=== PATIENT | male | born 1965 | race Caucasian/White ===

== ENCOUNTER 2019-05-15 23:10 | Emergency (ER) | payer OTHER, SELFPAY ==
[2019-05-15 23:17] VITALS: BP 173/103; PULSE 102; RESP 18; TEMP 36.2; O2SAT 99; BMI 30.4
--- NOTE | 2019-05-15 23:23 | PC.NURSE ---
pt reports similar episode of same seen at [facility]. reports a tight squeezing feeling in his temples. He presents with a slightly reddened ans swollen face. He states this happend before and he was treated with benedryl and steroids. He states it resolved the next day. Pt ambulated self in, denies any ataxia, speech, vision or sensations changes. Provider at bedside
--- NOTE | 2019-05-15 23:33 | ED_ITS ---
HPI - Headache General Chief Complaint: Headache Stated Complaint: bilateral temporal swelling poss arthritis' Time Seen by Provider: 05/15/19 23:12 Source: patient Mode of arrival: ambulatory Limitations: no limitations History of Present Illness HPI Narrative: 54-year-old male nonsmoker with history of OCD, depression, PTSD, GERD, and type 2 diabetes presents with a chief complaint of bilateral temporal swelling and scalp fullness that feels like squeezing. He denies any neurologic symptoms such as blurred vision, trouble with speech, numbness, tingling or weakness of his extremities. He denies any exposure to new chemicals, the son or any other lotions, shampoos or other. Patient denies any runny nose, sore throat or cough. Denies any chest pain or shortness of breath. Patient had one prior episode a few years ago with extensive workup and no definitive diagnosis, but seemed to improve with use of antihistamines, and steroids. MD Complaint: headache Onset (ago): hour(s) Onset description: gradual Location: temporal Severity: moderate Quality: throbbing Relieving factors: nothing Exacerbating factors: none Context: occurred at rest Associated symptoms: none Treatments prior to arrival: none Related Data Home Medications Medication Instructions Recorded Confirmed albuterol sulfate HFA 90 2 puff INHALATION Q6H PRN 08/03/18 05/10/19 mcg/actuation aerosol inhaler cholecalciferol (vitamin D3) 5,000 5,000 unit PO DAILY 08/03/18 05/10/19 unit capsule insulin U- 100 regular human 100 5 unit IM ONCE 08/03/18 05/10/19 unit/mL injection solution lorazepam 0.5 mg tablet 0.5 mg PO QD-BID PRN 08/03/18 05/10/19 metformin 1,000 mg tablet 1,000 mg PO BID 08/03/18 05/10/19 pantoprazole 40 mg tablet,delayed 40 mg PO DAILY PRN 08/03/18 05/10/19 release atorvastatin 10 mg tablet PO DAILY #30 tab 11/29/18 05/10/19 gabapentin 100 mg capsule 600 mg PO BID cap 01/20/19 05/10/19 Previous Rx's Medication Instructions Recorded prednisone 20 mg PO DAILY #5 tab 05/16/19 Allergies Allergy/AdvReac Type Severity Reaction Status Date / Time banana Allergy Verified 05/15/19 23:21 aspirin AdvReac Mild rash Verified 03/29/19 08:06 Penicillins AdvReac Mild rash Verified 03/29/19 08:06 Sulfa (Sulfonamide AdvReac Mild rash Verified 03/29/19 08:06 Antibiotics) Latex, Natural Rubber AdvReac Verified 03/29/19 08:06 contrast Allergy Uncoded 05/15/19 23:21 tropical fruits AdvReac Anaphylaxis-Includes Uncoded 03/29/19 08:06 Bananas Review of Systems Constitutional Denies chills, Denies fever(s), Reports headache(s), Denies lethargy and Denies weakness Eyes Denies change in vision, Denies eye discharge, Denies irritation and Denies loss of vision ENT Ears, Nose, Mouth, and Throat: Denies change in voice, Reports headache(s), Denies neck pain and Denies sore throat Cardiovascular Denies chest pain, Denies irregular heart rhythm, Denies lightheadedness, Denies palpitations, Denies dyspnea, Denies dyspnea on exertion and Denies orthopnea Respiratory Denies cough, Denies dyspnea, Denies dyspnea on exertion and Denies wheezing Gastrointestinal Gastrointestinal: Denies abdominal pain, Denies change in bowel habits, Denies diarrhea, Denies nausea and Denies vomiting Genitourinary Denies hematuria, Denies flank pain, Denies urinary incontinence and Denies urinary urgency Musculoskeletal Denies neck pain Integumentary/Breasts Denies pruritus, Denies erythema, Denies rash and Denies wounds Neurologic Denies confusion, Reports headache(s), Denies loss of vision and Denies weakness Psychiatric Denies anxiety, Denies confusion, Denies depression, Denies homicidal ideation and Denies suicidal ideation Endocrine Denies palpitations Hematologic/Lymphatic Denies easy bruising Allergic/Immunologic Denies wheezing and Reports other PFSH Social History Smoking Status: Never smoker Social History Smoking Status: Never smoker Exam Narrative Exam Narrative: GENERAL: [54] year old patient appears stated age. Well- nourished, well-developed patient, in mild distress. Anxious at baseline HEAD: Atraumatic. Mild bilateral temporal swelling with some tenderness to palpation, minimal scalp with erythema. EYES: Pupils equal round and reactive. Extraocular motions intact. No scleral icterus. No injection or drainage. ENT: Nose without bleeding, purulent drainage. Throat without erythema, tonsillar hypertrophy or exudate. Airway patent. No tongue, lip or throat swelling NECK: Trachea midline. Non tender CARDIOVASCULAR: Regular rate and rhythm without murmurs, gallops, or rubs. RESPIRATORY: Clear to auscultation. Breath sounds equal bilaterally. No wheezes, rales, or rhonchi. GASTROINTESTINAL: Abdomen soft, non-tender, nondistended. EXTREMITIES: No edema or joint tenderness. BACK: Nontender without deformity or crepitance. No flank tenderness. NEURO: AOx3. SKIN: No rash or erythema of visible areas other than that which is stated above Initial Vital Signs Initial Vital Signs: Vital Signs Temperature 97.1 F L 05/15/19 23:17 Pulse Rate 102 H 05/15/19 23:17 Respiratory Rate 18 05/15/19 23:17 Blood Pressure 173/103 H 05/15/19 23:17 Pulse Oximetry 99 05/15/19 23:17 Course Orders Ordered: ED Orders 05/15/19 21:50 Basic Metabolic Panel Stat C-Reactive Protein Quant Stat Complete Blood Count AUTO DIFF Stat Erythrocyte Sedimentation Rate Stat Discontinued Medications Famotidine (Pepcid) 20 mg in 50 mls @ 200 mls/hr IV NOW ONE Stop: 05/15/19 23:45 Last Infusion: 05/16/19 00:19 Dose: 0 mls/hr Admin: 05/15/19 23:53 Dose: 200 mls/hr Ketorolac Tromethamine (Toradol) 15 mg IV NOW ONE Stop: 05/15/19 23:30 Last Admin: 05/15/19 23:53 Dose: 15 mg Methylprednisolone (Solu-Medrol 125 Mg Vial) 125 mg IV NOW ONE Stop: 05/15/19 23:30 Last Admin: 05/15/19 23:53 Dose: 125 mg Vital Signs - 8 hr 05/15/19 23:17 05/16/19 00:01 05/16/19 02:15 Temperature 97.1 F L Pulse Rate 102 H 79 Respiratory Rate 18 76 H 16 Blood Pressure 173/103 H Blood Pressure [Right Arm] 144/72 H 126/75 Pulse Oximetry 99 98 97 MDM - Headache Lab Data Result diagrams: 05/15/19 21:50 05/15/19 21:50 Lab Results 05/15/19 05/15/19 05/15/19 Range/Units 21:50 21:50 21:50 WBC 8.9 (4.5-11.0) X10^3/uL RBC 4.84 (4.5-5.9) X10^6/uL Hgb 13.9 (13.5-17.5) g/dL Hct 40.3 L (41-53) % MCV 83.4 (80-100) fL MCH 28.8 (26-34) PG MCHC 34.5 (30-36) % RDW 14.5 (11.6-14.8) % Plt Count 224 (150-400) X10^3/uL Neut % (Auto) 60.2 (50-75) % Lymph % (Auto) 25.3 (25-40) % [place] % (Auto) 7.0 (3-14) % Eos % (Auto) 7.0 H (2-4) % Baso % (Auto) 0.5 (0-2) % Neut # (Auto) 5400 (0548-1311) /uL Lymph # (Auto) 2300 (7672-6951) /uL [place] # (Auto) 600 (0-900) /uL Eos # (Auto) 600 H (0-450) /uL Baso # (Auto) 0 (0-100) /uL ESR 37 H (0-15) MM/HR Sodium (137-145) mmol/L Potassium (3.4-5.1) mmol/L Chloride (98-107) mmol/L Carbon Dioxide (22-32) mmol/L BUN (9-20) mg/dL Creatinine (0.66-1.25) mg/dL Estimated GFR (>60) mL/min BUN/Creatinine Ratio (6-22) Glucose (70-100) mg/dL Calcium (8.4-10.2) mg/dL C-Reactive Protein 0.5 (<1.0) mg/dL 05/15/19 Range/Units 21:50 WBC (4.5-11.0) X10^3/uL RBC (4.5-5.9) X10^6/uL Hgb (13.5-17.5) g/dL Hct (41-53) % MCV (80-100) fL MCH (26-34) PG MCHC (30-36) % RDW (11.6-14.8) % Plt Count (150-400) X10^3/uL Neut % (Auto) (50-75) % Lymph % (Auto) (25-40) % [place] % (Auto) (3-14) % Eos % (Auto) (2-4) % Baso % (Auto) (0-2) % Neut # (Auto) (9150-3684) /uL Lymph # (Auto) (1534-7823) /uL [place] # (Auto) (0-900) /uL Eos # (Auto) (0-450) /uL Baso # (Auto) (0-100) /uL ESR (0-15) MM/HR Sodium 142 (137-145) mmol/L Potassium 3.7 (3.4-5.1) mmol/L Chloride 102 (98-107) mmol/L Carbon Dioxide 29 (22-32) mmol/L BUN 19 (9-20) mg/dL Creatinine 0.60 L (0.66-1.25) mg/dL Estimated GFR > 60.0 (>60) mL/min BUN/Creatinine Ratio 31.7 H (6-22) Glucose 199 H (70-100) mg/dL Calcium 9.5 (8.4-10.2) mg/dL C-Reactive Protein (<1.0) mg/dL Point of Care Testing Glucose POC 192 Discharge Plan Departure Patient Disposition: Home Clinical Impression: Headache Qualifiers: Headache type: other headache syndrome Qualified Code(s): G44.89 - Other headache syndrome Discharge Date/Time: 05/16/19 02:26 Interventions: ED Discharge Assessment Last Done: 05/16/19 02:25 Instructions: DI for Headache Activity Restrictions/Additional Instructions: *You have been diagnosed with [nonspecific headache, scalp swelling, possible allergic reaction] *What to do: *Take medications as directed *Follow up with your primary care provider in 2-3 days, call for an appointment. Let them know you were seen in the Emergency Department and that we ask that you be seen in follow up *Return to ER if you should have any new, worsening or concerning symptoms Prescriptions: New prednisone 20 mg tablet 20 mg PO DAILY Qty: 5 RF: 0 No Action atorvastatin 10 mg tablet PO DAILY Qty: 30 RF: 0 gabapentin 100 mg capsule 600 mg PO BID RF: 0 lorazepam 0.5 mg tablet 0.5 mg PO QD-BID PRNRF: 0 pantoprazole 40 mg tablet,delayed release (DR/EC) 40 mg PO DAILY PRNRF: 0 metformin 1,000 mg tablet 1,000 mg PO BID RF: 0 insulin regular human 100 unit/mL solution 5 unit IM ONCE RF: 0 albuterol sulfate 90 mcg/actuation HFA aerosol inhaler 2 puff INHALATION Q6H PRNRF: 0 cholecalciferol (vitamin D3) 5,000 unit capsule 5,000 unit PO DAILY RF: 0
[2019-05-15] MEDS: FAMOTIDINE 20 MG/50 ML PIGGYBACK 200 MG IV (23:53)
[2019-05-15] MEDS: methylPREDNISolone 125 MG/2 ML VIAL IV (23:53)
[2019-05-15] MEDS: KETOROLAC 60 MG/2 ML VIAL 15 MG IV (23:53)
[2019-05-15 23:58] LABS: Add Manual Diff / Slide Review NO; Basophils Absolute Auto 0 /uL (0-100); Basophils Percent Auto 0.5 % (0-2); Eosinophils Absolute Auto 600 /uL (0-450); Hematocrit 40.3 % (41-53); Hemoglobin 13.9 g/dL (13.5-17.5); Lymphocytes Absolute Auto 2300 /uL (1100-4500); Lymphocytes Percent Auto 25.3 % (25-40); Mean Corpuscular HGB Conc 34.5 % (30-36); Mean Corpuscular Hemoglobin 28.8 PG (26-34); Mean Corpuscular Volume 83.4 fL (80-100); Monocytes Absolute Auto 600 /uL (0-900); Neutrophils Absolute Auto 5400 /uL (1500-7000); Neutrophils Percent Auto 60.2 % (50-75); Platelet Count 224 X10^3/uL (150-400); Red Blood Cell Count 4.84 X10^6/uL (4.5-5.9); Red Cell Distribution Width 14.5 % (11.6-14.8); White Blood Cell Count 8.9 X10^3/uL (4.5-11.0)
[2019-05-16 00:01] VITALS: BP 144/72; RESP 76; O2SAT 98
[2019-05-16 00:07] LABS: BUN Creatinine Ratio 31.7 (6-22); Blood Urea Nitrogen 19 mg/dL (9-20); Calcium 9.5 mg/dL (8.4-10.2); Carbon Dioxide 29 mmol/L (22-32); Chloride 102 mmol/L (98-107); Estimated Glomerular Filt Rate > 60.0 mL/min (>60); Glucose 199 mg/dL (70-100); HEMOLYSIS < 15 (0-50); Potassium 3.7 mmol/L (3.4-5.1); Sodium 142 mmol/L (137-145)
[2019-05-16 00:11] LABS: C-Reactive Protein Quant 0.5 mg/dL (<1.0)
[2019-05-16 00:18] LABS: Erythrocyte Sedimentation Rate 37 MM/HR (0-15)
[2019-05-16 02:15] VITALS: BP 126/75; PULSE 79; RESP 16; O2SAT 97
== END 2019-05-16 02:26 | disposition home or self-care (01) ==
PROVIDERS: Emergency Provider Emergency Medicine
DX: G44.89 Other headache syndrome (principal)
CPT/HCPCS: 36591; 80048; 82962; 85025; 85651; 86140; 96365; 96375; 99283; 99284; J1885; J2930

== ENCOUNTER → 2019-05-23 12:22 | Outpatient (CLI) | payer OTHER, SELFPAY ==
[2019-05-23 13:05] LABS: Alanine Aminotransferase 28 IU/L (21-72); Albumin 4.7 g/dL (3.5-5.0); Albumin Globulin Ratio 1.5 (1.0-2.8); Alkaline Phosphatase 104 U/L (38-126); Aspartate Aminotransferase 21 IU/L (17-59); BUN Creatinine Ratio 18.6 (6-22); Bilirubin Total 0.7 mg/dL (0.2-1.3); Blood Urea Nitrogen 13 mg/dL (9-20); Carbon Dioxide 25 mmol/L (22-32); Chloride 101 mmol/L (98-107); Cholesterol 141 mg/dL (140-199); Estimated Glomerular Filt Rate > 60.0 mL/min (>60); Globulin 3.1 g/dL (1.7-4.1); Glucose 179 mg/dL (70-100); HDL Cholesterol 50 mg/dL (40-60); HEMOLYSIS < 15 (0-50); LDL Cholesterol Calculated 68 mg/dL (<100); Potassium 4.6 mmol/L (3.4-5.1); Sodium 139 mmol/L (137-145); Total Protein 7.8 g/dL (6.3-8.2); Triglycerides 115 mg/dL (35-150)
== END ==
PROVIDERS: Visit Provider Family Medicine
DX: E11.9 Type 2 diabetes mellitus without complications (principal); E78.5 Hyperlipidemia, unspecified
CPT/HCPCS: 36415; 80053; 80061; 83036

== ENCOUNTER → 2019-05-27 06:55 | Outpatient (ROUT) | payer OTHER, SELFPAY ==
[2019-05-27 07:26] LABS: Add Manual Diff / Slide Review NO; Basophils Absolute Auto 0 /uL (0-100); Basophils Percent Auto 0.4 % (0-2); Eosinophils Absolute Auto 800 /uL (0-450); Eosinophils Percent Auto 7.6 % (2-4); Hematocrit 42.3 % (41-53); Hemoglobin 14.3 g/dL (13.5-17.5); Lymphocytes Absolute Auto 2400 /uL (1100-4500); Lymphocytes Percent Auto 22.3 % (25-40); Mean Corpuscular HGB Conc 33.8 % (30-36); Mean Corpuscular Hemoglobin 29.1 PG (26-34); Mean Corpuscular Volume 86.1 fL (80-100); Monocytes Absolute Auto 500 /uL (0-900); Monocytes Percent Auto 4.8 % (3-14); Neutrophils Absolute Auto 7000 /uL (1500-7000); Neutrophils Percent Auto 64.9 % (50-75); Platelet Count 235 X10^3/uL (150-400); Red Blood Cell Count 4.91 X10^6/uL (4.5-5.9); Red Cell Distribution Width 14.5 % (11.6-14.8); White Blood Cell Count 10.8 X10^3/uL (4.5-11.0)
[2019-05-27 07:31] LABS: Vitamin D 25 Hydroxy (D3) 37.9 ng/mL (30.0-100.0)
== END ==
PROVIDERS: Visit Provider Family Medicine
DX: E56.9 Vitamin deficiency, unspecified (principal); E11.9 Type 2 diabetes mellitus without complications
CPT/HCPCS: 82306; 85025

== ENCOUNTER → 2019-06-27 13:46 | Outpatient (CLI) | payer OTHER, SELFPAY | DX: Z23 Encounter for immunization (principal) | CPT/HCPCS: 90471; 90686 ==

== ENCOUNTER → 2020-03-16 12:17 | Outpatient (CLI) | payer OTHER, MEDICAID, SELFPAY ==
[2020-03-16 16:11] LABS: Creatinine Urine Random 231.4 mg/dL
[2020-03-16 16:15] LABS: Microalbumi Creatinin Ratio Ur 5.1 ug/mg CR (<30); Microalbumin Urine Random 1.2 mg/dL (0-1.6)
== END ==
PROVIDERS: Referring Provider Family Medicine; Visit Provider Family Medicine
DX: E11.9 Type 2 diabetes mellitus without complications (principal)
CPT/HCPCS: 82043; 82570

== ENCOUNTER → 2020-03-20 13:28 | Outpatient (CLI) | payer OTHER, MEDICAID, SELFPAY ==
[2020-03-20 16:11] LABS: Add Manual Diff / Slide Review NO; Basophils Absolute Auto 0 /uL (0-100); Basophils Percent Auto 0.4 % (0-2); Eosinophils Absolute Auto 300 /uL (0-450); Eosinophils Percent Auto 4.5 % (2-4); Hematocrit 39.7 % (41-53); Lymphocytes Absolute Auto 1700 /uL (1100-4500); Lymphocytes Percent Auto 24.7 % (25-40); Mean Corpuscular HGB Conc 35.2 % (30-36); Mean Corpuscular Hemoglobin 29.5 PG (26-34); Mean Corpuscular Volume 83.7 fL (80-100); Monocytes Absolute Auto 500 /uL (0-900); Monocytes Percent Auto 7.2 % (3-14); Neutrophils Absolute Auto 4400 /uL (1500-7000); Neutrophils Percent Auto 63.2 % (50-75); Platelet Count 218 X10^3/uL (150-400); Red Blood Cell Count 4.75 X10^6/uL (4.5-5.9); Red Cell Distribution Width 14.9 % (11.6-14.8); White Blood Cell Count 6.9 X10^3/uL (4.5-11.0)
[2020-03-20 16:23] LABS: Hemoglobin A1C% w Est Avg Glu 6.5 % (4.0-6.0)
[2020-03-20 16:38] LABS: Alanine Aminotransferase 17 IU/L (<50); Albumin 4.9 g/dL (3.5-5.0); Albumin Globulin Ratio 1.5 (1.0-2.8); Alkaline Phosphatase 83 U/L (38-126); Aspartate Aminotransferase 27 IU/L (17-59); BUN Creatinine Ratio 23.3 (6-22); Bilirubin Total 0.6 mg/dL (0.2-1.3); Blood Urea Nitrogen 17 mg/dL (9-20); Calcium 10.5 mg/dL (8.4-10.2); Carbon Dioxide 28 mmol/L (22-32); Chloride 104 mmol/L (98-107); Estimated Glomerular Filt Rate > 60.0 mL/min (>60); Globulin 3.2 g/dL (1.7-4.1); Glucose 83 mg/dL (70-100); HEMOLYSIS < 15 (0-50); Potassium 3.8 mmol/L (3.4-5.1); Sodium 141 mmol/L (137-145); Total Protein 8.1 g/dL (6.3-8.2)
[2020-03-20 17:09] LABS: Prostate Specific Antigen 0.811 ng/mL (0.10-4.00); Thyroid Stimulating Hormone 1.29 uIU/mL (0.47-4.68)
== END ==
PROVIDERS: Referring Provider Family Medicine; Visit Provider Family Medicine
DX: Z12.5 Encounter for screening for malignant neoplasm of prostate (principal); E11.9 Type 2 diabetes mellitus without complications; Z86.39 Personal history of other endocrine, nutritional and metabolic disease
CPT/HCPCS: 36415; 80053; 83036; 84153; 84443; 85025

== ENCOUNTER → 2020-04-17 10:00 | Outpatient (CLI) | payer OTHER, MEDICAID, SELFPAY ==
[2020-04-17 12:17] LABS: COVID19 -Nasal RAPID Negative (Negative)
== END ==
PROVIDERS: Visit Provider Physician Assistant
DX: R50.9 Fever, unspecified (principal); R43.2 Parageusia; R06.02 Shortness of breath; R53.83 Other fatigue
CPT/HCPCS: 87635

== ENCOUNTER 2020-06-16 08:46 | Emergency (ER) | payer OTHER, MEDICAID, SELFPAY ==
[2020-06-16 08:50] VITALS: BP 170/84; PULSE 80; RESP 16; TEMP 36.6; O2SAT 99; BMI 29.7
[2020-06-16 09:08] VITALS: PULSE 74; O2SAT 100
--- NOTE | 2020-06-16 09:14 | DI.CT.S_ITS ---
PROCEDURE: CT KIDNEY URETER BLADDER (KUB) INDICATIONS: right flank pain. Hematuria. TECHNIQUE: Noncontrast 5 mm thick sections acquired from the diaphragms to the symphysis. 5 mm thick coronal and sagittal reformats were then performed. For radiation dose reduction, the following was used: automated exposure control, adjustment of mA and/or kV according to patient size. COMPARISON: None. FINDINGS: Image quality: Excellent. Lung bases: Lung bases are clear. Heart size is normal. A small hiatal hernia is incidentally noted. Urinary system: Within the left proximal most ureter, there is a partially obstructing stone seen that measures 4-5 mm, as on series 2, image 32. There is minimal left-sided hydronephrosis. Minimal left-sided perinephric fat stranding is seen. No other ureteral stones are seen. There is a 3 mm nonobstructing kidney stone seen at the inferior pole of the left kidney. No right-sided kidney stones are seen. Both kidneys are normal in size. Bladder wall thickness is normal; no calcified bladder stones. Other solid organs: Liver is normal in size. Gallbladder wall is not thickened. Pancreas is normal in contours. Spleen is normal in size. No adrenal nodules. Peritoneum and bowel: Unenhanced bowel loops demonstrate normal wall thickness and caliber. No free fluid or air. Nodes and vessels: No retroperitoneal or mesenteric adenopathy by size criteria. However, there are borderline prominent mesenteric lymph nodes seen. Mild fatty stranding can be seen along the mesentery. Aorta and inferior vena cava are normal in caliber. Abdominal wall: No ventral hernias. Pelvis: No free pelvic fluid. No enlarged inguinal or pelvic lymph nodes are seen. There is a moderately sized fat-containing left inguinal hernia seen. Bones: No suspicious bony lesions. No vertebral body compression fractures. Mild transitional anatomy is noted, with partial sacralization of the L5 vertebral body. Minimal levoconvex lumbar scoliotic curvature is seen. IMPRESSION: 4-5 mm obstructing stone seen within the proximal most LEFT ureter, with minimal left-sided hydronephrosis and perinephric fat stranding. 3 mm nonobstructing left-sided kidney stone. Borderline prominent mesenteric lymph nodes are seen, with mild mesenteric fatty stranding. This is nonspecific, although most commonly related to chronic inflammation. Incidental note is made of: Small hiatal hernia Moderate fat containing left inguinal hernia Partial sacralization of L5. Note: Case discussed by telephone with Dr. Latif at 8:52 a.m. on June 16, 2020. Dictated by: Sanchez Rosales M.D. on 06/16/2020 at 8:46 Approved by: Sanchez Rosales M.D. on 06/16/2020 at 8:55
[2020-06-16 09:17] LABS: Bacteria Urine None Seen; WBC Urine None Seen (0-5/HPF)
--- NOTE | 2020-06-16 09:19 | ED_ITS ---
HPI - Male Genitourinary General Chief complaint: Urogenital-Male Stated complaint: blood in urine since Wednesday Time Seen by Provider: 06/16/20 08:59 Source: patient Mode of arrival: Ambulatory Limitations: no limitations History of Present Illness HPI Narrative: Patient is a 55-year-old male with history of diabetes who presents with hematuria. 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 Today he noticed there was a large amount of blood. He has some very mild right-sided flank pain, he has some minor discomfort at the tip of his penis. He denies any fever or chills. He also is noticing some bilateral thigh pain a couple days ago. He denies any significant or heavy exercise. He no longer has pain there now. He denies any painful or frequent urination no nausea or vomiting. He also denies any testicular pain no radiation of right flank pain. MD Complaint: other (Hematuria) Related Data Home Medications Medication Instructions Recorded Confirmed albuterol sulfate 90 mcg/actuation 2 puff INHALATION Q6H PRN 08/03/18 04/05/20 aerosol inhaler cholecalciferol (vitamin D3) 125 5,000 unit PO DAILY 08/03/18 04/05/20 mcg (5,000 unit) capsule lorazepam 0.5 mg tablet 0.5 mg PO QD-BID PRN 08/03/18 02/14/20 metformin 1,000 mg tablet 1,000 mg PO BID 08/03/18 04/05/20 pantoprazole 40 mg tablet,delayed 40 mg PO DAILY PRN 08/03/18 04/05/20 release atorvastatin 10 mg tablet PO DAILY #30 tab 11/29/18 04/05/20 gabapentin 100 mg capsule 500 mg PO BID cap 02/14/20 04/05/20 insulin glargine 100 unit/mL (3 30 unit SUBCUT DAILY 02/14/20 04/05/20 mL) subcutaneous pen insulin regular human 100 unit/mL 15 - 18 unit SUBCUT TID ml 02/14/20 04/05/20 injection solution Previous Rx's Medication Instructions Recorded hydrocodone-acetaminophen 1 tab PO Q6H PRN #10 tab 06/16/20 ondansetron 4 mg PO Q8H PRN #10 tab 06/16/20 Allergies Allergy/AdvReac Type Severity Reaction Status Date / Time banana Allergy Verified 06/16/20 09:15 aspirin AdvReac Mild rash Verified 06/16/20 09:15 Penicillins AdvReac Mild rash Verified 06/16/20 09:15 Sulfa (Sulfonamide AdvReac Mild rash Verified 06/16/20 09:15 Antibiotics) Latex, Natural Rubber AdvReac Verified 06/16/20 09:15 contrast Allergy Uncoded 04/17/20 11:18 tropical fruits AdvReac Anaphylaxis-Includes Uncoded 04/17/20 11:18 Bananas Review of Systems Review of Systems Narrative: GENERAL: Denies chills, fatigue, malaise, fever, sweats, travel HEENT: Denies sinus pain, ear pain, sore throat, difficulty swallowing, neck pain RESPIRATORY: Denies dyspnea, cough, wheezing, hemoptysis, sputum. CARDIOVASCULAR: Denies chest pain, palpitations, orthopnea, edema GASTROINTESTINAL: Denies nausea, vomiting, abdominal pain, diarrhea, constipation, melena. : See HPI MUSCULOSKELETAL: Denies weakness, joint pain, or bony pain SKIN: No rash, no erythema, no pruritus NEUROLOGIC: Denies weakness, dizziness, headache, numbness, change in speech, confusion PSYCHIATRIC: No concerning psychosocial issues. 12 point review of systems is negative except for those stated above and HPI Patient History Medical History (Updated 06/16/20 @ 10:06 by Emelina Latif DO) Diabetes (Acute) Functional neurological symptom disorder with weakness or paralysis (Acute) OCD (obsessive compulsive disorder) (Acute) Social History Smoking Status: Never smoker Smoking Status: Never smoker alcohol intake frequency: 0-2 drinks per day Substance Use Type: does not use Exam Initial Vital Signs Initial Vital Signs: Vital Signs Temperature 98 F 06/16/20 08:50 Pulse Rate 80 06/16/20 08:50 Respiratory Rate 16 06/16/20 08:50 Blood Pressure 170/84 H 06/16/20 08:50 Pulse Oximetry 99 06/16/20 08:50 GENERAL: Well-appearing, well-nourished and in no acute distress. HEENT: Head atraumatic,EOMI, pupils reactive, face symmetric, moist mucous membranes CARDIOVASCULAR: Regular rate and rhythm without murmurs, rubs or gallops. RESPIRATORY: Breath sounds equal bilaterally, no wheezes rales or rhonchi. ABDOMEN: Soft, nontender. Normoactive bowel sounds all 4 quadrants. No guarding or rebound. : Mild right CVA tenderness EXTREMITIES: Normal range of motion, no clubbing or edema. Neurovascularly intact NEUROLOGICAL: Alert and oriented x4.Normal gait and speech. SKIN: Warm, dry, no laceration, no petechiae, no rashes or lesions. Course Orders Ordered: ED Orders 06/16/20 09:07 Complete Blood Count AUTO DIFF Stat Comprehensive Metabolic Panel Stat Creatine Kinase Stat UA Complete [Urinalysis and Microscopic] Stat 06/16/20 09:14 CT kidney ureter bladder (KUB) Stat Vital Signs Vital signs: Vital Signs - 8 hr 06/16/20 08:50 06/16/20 09:08 06/16/20 09:30 Temperature 98 F Pulse Rate 80 74 68 Respiratory Rate 16 Blood Pressure 170/84 H 145/79 H Pulse Oximetry 99 100 98 06/16/20 10:00 Temperature Pulse Rate 78 Respiratory Rate Blood Pressure Pulse Oximetry 98 MDM - Male Genitourinary Lab Data Attestation: I reviewed the patient's lab results. Result diagrams: 06/16/20 09:07 06/16/20 09:07 Labs: Lab Results 06/16/20 06/16/20 06/16/20 Range/Units 09:07 09:07 09:07 WBC 6.9 (4.5-11.0) X10^3/uL RBC 4.70 (4.5-5.9) X10^6/uL Hgb 13.6 (13.5-17.5) g/dL Hct 39.6 L (41-53) % MCV 84.3 (80-100) fL MCH 28.9 (26-34) PG MCHC 34.2 (30-36) % RDW 14.0 (11.6-14.8) % Plt Count 204 (150-400) X10^3/uL Neut % (Auto) 59.6 (50-75) % Lymph % (Auto) 24.9 L (25-40) % Sanders % (Auto) 7.0 (3-14) % Eos % (Auto) 7.4 H (2-4) % Baso % (Auto) 1.1 (0-2) % Neut # (Auto) 4100 (9258-8734) /uL Lymph # (Auto) 1700 (2389-9957) /uL Sanders # (Auto) 500 (0-900) /uL Eos # (Auto) 500 H (0-450) /uL Baso # (Auto) 100 (0-100) /uL Sodium 141 (137-145) mmol/L Potassium 3.8 (3.4-5.1) mmol/L Chloride 103 (98-107) mmol/L Carbon Dioxide 29 (22-32) mmol/L BUN 8 L (9-20) mg/dL Creatinine 0.63 L (0.66-1.25) mg/dL Estimated GFR > 60.0 (>60) mL/min BUN/Creatinine Ratio 12.7 (6-22) Glucose 157 H (70-100) mg/dL Calcium 9.2 (8.4-10.2) mg/dL Total Bilirubin 0.5 (0.2-1.3) mg/dL AST 23 (17-59) IU/L ALT 16 (<50) IU/L Alkaline Phosphatase 130 H (38-126) U/L Total Creatine Kinase 58 (55-170) U/L Total Protein 8.1 (6.3-8.2) g/dL Albumin 4.6 (3.5-5.0) g/dL Globulin 3.5 (1.7-4.1) g/dL Albumin/Globulin Ratio 1.3 (1.0-2.8) Urine Color Yellow Urine Appearance Clear Urine pH 5.5 (4.5-8.0) Ur Specific [place] <=1.005 (1.000-1.035) Urine Protein Negative (Negative) Urine Glucose (UA) Negative (Negative) g/dL Urine Ketones Negative (NEGATIVE) Urine Occult Blood 3+ H (Negative) Urine Nitrate Negative (Negative) Urine Bilirubin Negative (NEGATIVE) Urine Urobilinogen 0.2 (0.2) E.U./dL Ur Leukocyte Esterase Negative (NEGATIVE) Urine RBC 1-5/hpf (0-5/HPF) Urine WBC None seen (0-5/HPF) Urine Bacteria None seen (None) Ur Culture Indicated? Cult not indicated Imaging Data CT scan - abdomen/pelvis: Radiologist's Impression: PROCEDURE: CT KIDNEY URETER BLADDER (KUB) INDICATIONS: right flank pain. Hematuria. TECHNIQUE: Noncontrast 5 mm thick sections acquired from the diaphragms to the symphysis. 5 mm thick coronal and sagittal reformats were then performed. For radiation dose reduction, the following was used: automated exposure control, adjustment of mA and/or kV according to patient size. COMPARISON: None. FINDINGS: Image quality: Excellent. Lung bases: Lung bases are clear. Heart size is normal. A small hiatal hernia is incidentally noted. Urinary system: Within the left proximal most ureter, there is a partially obstructing stone seen that measures 4-5 mm, as on series 2, image 32. There is minimal left-sided hydronephrosis. Minimal left-sided perinephric fat stranding is seen. No other ureteral stones are seen. There is a 3 mm nonobstructing kidney stone seen at the inferior pole of the left kidney. No right-sided kidney stones are seen. Both kidneys are normal in size. Bladder wall thickness is normal; no calcified bladder stones. Other solid organs: Liver is normal in size. Gallbladder wall is not thickened. Pancreas is normal in contours. Spleen is normal in size. No adrenal nodules. Peritoneum and bowel: Unenhanced bowel loops demonstrate normal wall thickness and caliber. No free fluid or air. Nodes and vessels: No retroperitoneal or mesenteric adenopathy by size criteria. However, there are borderline prominent mesenteric lymph nodes seen. Mild fatty stranding can be seen along the mesentery. Aorta and inferior vena cava are normal in caliber. Abdominal wall: No ventral hernias. Pelvis: No free pelvic fluid. No enlarged inguinal or pelvic lymph nodes are seen. There is a moderately sized fat-containing left inguinal hernia seen. Bones: No suspicious bony lesions. No vertebral body compression fractures. Mild transitional anatomy is noted, with partial sacralization of the L5 vertebral body. Minimal levoconvex lumbar scoliotic curvature is seen. IMPRESSION: 4-5 mm obstructing stone seen within the proximal most LEFT ureter, with minimal left-sided hydronephrosis and perinephric fat stranding. 3 mm nonobstructing left-sided kidney stone. Borderline prominent mesenteric lymph nodes are seen, with mild mesenteric fatty stranding. This is nonspecific, although most commonly related to chronic inflammation. Incidental note is made of: Small hiatal hernia Moderate fat containing left inguinal hernia Partial sacralization of L5. Note: Case discussed by telephone with Dr. Latif at 8:52 a.m. on June 16, 2020. Dictated by: Sanchez Rosales M.D. on 06/16/2020 at 8:46 Approved by: Sanchez Rosales M.D. on 06/16/2020 at 8:55 MDM Narrative Medical decision making narrative: The patient is found to have a kidney stone on the left side. He really does not have any specific pain. He does have hematuria without sign of infection. Recommend outpatient follow-up. He is given home medications for outpatient pain control if needed Discharge Plan Departure Patient Disposition: Home Clinical Impression: Kidney stone on left side Discharge Date/Time: 06/16/20 10:28 Instructions: DI for Kidney Stones Activity Restrictions/Additional Instructions: *You have been diagnosed with kidney stone *What to do: At this time have the very start of a kidney stone on the left side. At recommend hydration and pain control. You should pass this kidney stone without any intervention however you may require urology consultation. Please call your primary care provider tomorrow to schedule a follow-up. *Continue to take medications as directed Ibuprofen 600 mg every 6-8 hours if needed for kugu-dn-esonzrqn pain Zofran 4 mg every 8 hours as needed for nausea or vomiting Arboles 1 tablet every 6 hours only if needed for severe pain *Follow up with your primary care provider in 2-3 days *Return to ER if you should have increased pain, persistent vomiting, or any new, worsening or concerning symptoms CONTROLLED SUBSTANCE DISCHARGE (Narcotoic/benzodiazepine/Flexeril/Phenergan) 1. You have been prescribed narcotic medications, it does have acetaminophen/Tylenol/paracetamol in it so do not take extra Tylenol or Tylenol containing products TRAMADOL DOES NOT CONTAIN TYLENOL 2. Please understand that we cannot provide further refills of narcotics, benzodiazepines or controlled substances through the ED and her pain management will need to be through your provider. 3. While on these medications you cannot drive or operate heavy machinery. 4. You cannot sign legal documents or perform any duties such as this. 5. As long as you're taking opiate pain medications he should also be taking a stool softener such as Colace, Dulcolax, MiraLAX or prune juice, to help avoid constipation. Prescriptions: New hydrocodone-acetaminophen 5-325 mg tablet 1 tab PO Q6H PRN (Reason: pain) Qty: 10 RF: 0 ondansetron 4 mg tablet,disintegrating 4 mg PO Q8H PRN (Reason: nausea and vomiting) Qty: 10 RF: 0 No Action atorvastatin 10 mg tablet PO DAILY Qty: 30 RF: 0 gabapentin 100 mg capsule 500 mg PO BID RF: 0 Lantus Solostar U-100 Insulin 100 unit/mL (3 mL) insulin pen 30 unit SUBCUT DAILY RF: 0 Novolin R Regular U-100 Insuln 100 unit/mL solution 15 - 18 unit SUBCUT TID RF: 0 lorazepam 0.5 mg tablet 0.5 mg PO QD-BID PRNRF: 0 pantoprazole 40 mg tablet,delayed release (DR/EC) 40 mg PO DAILY PRNRF: 0 metformin 1,000 mg tablet 1,000 mg PO BID RF: 0 albuterol sulfate 90 mcg/actuation HFA aerosol inhaler 2 puff INHALATION Q6H PRNRF: 0 cholecalciferol (vitamin D3) 5,000 unit capsule 5,000 unit PO DAILY RF: 0 Referrals: Sandro Davalos MD [Primary Care Provider] -
[2020-06-16 09:20] LABS: Add Manual Diff / Slide Review NO; Basophils Absolute Auto 100 /uL (0-100); Basophils Percent Auto 1.1 % (0-2); Eosinophils Absolute Auto 500 /uL (0-450); Eosinophils Percent Auto 7.4 % (2-4); Hematocrit 39.6 % (41-53); Hemoglobin 13.6 g/dL (13.5-17.5); Lymphocytes Absolute Auto 1700 /uL (1100-4500); Lymphocytes Percent Auto 24.9 % (25-40); Mean Corpuscular HGB Conc 34.2 % (30-36); Mean Corpuscular Hemoglobin 28.9 PG (26-34); Mean Corpuscular Volume 84.3 fL (80-100); Monocytes Absolute Auto 500 /uL (0-900); Neutrophils Absolute Auto 4100 /uL (1500-7000); Neutrophils Percent Auto 59.6 % (50-75); Platelet Count 204 X10^3/uL (150-400); White Blood Cell Count 6.9 X10^3/uL (4.5-11.0)
[2020-06-16 09:25] LABS: Alanine Aminotransferase 16 IU/L (<50); Albumin 4.6 g/dL (3.5-5.0); Albumin Globulin Ratio 1.3 (1.0-2.8); Alkaline Phosphatase 130 U/L (38-126); Aspartate Aminotransferase 23 IU/L (17-59); BUN Creatinine Ratio 12.7 (6-22); Bilirubin Total 0.5 mg/dL (0.2-1.3); Blood Urea Nitrogen 8 mg/dL (9-20); Calcium 9.2 mg/dL (8.4-10.2); Carbon Dioxide 29 mmol/L (22-32); Chloride 103 mmol/L (98-107); Creatine Kinase 58 U/L (55-170); Estimated Glomerular Filt Rate > 60.0 mL/min (>60); Globulin 3.5 g/dL (1.7-4.1); Glucose 157 mg/dL (70-100); HEMOLYSIS < 15 (0-50); Potassium 3.8 mmol/L (3.4-5.1); Sodium 141 mmol/L (137-145); Total Protein 8.1 g/dL (6.3-8.2)
[2020-06-16 09:27] LABS: Appearance Urine UA CLEAR; Bilirubin Urine UA NEGATIVE (NEGATIVE); Color Urine UA YELLOW; Glucose Urine UA NEGATIVE (Negative); Ketones Urine UA NEGATIVE (NEGATIVE); Leukocyte Esterase Urine UA NEGATIVE (NEGATIVE); Nitrite Urine UA NEGATIVE (Negative); Occult Blood Urine UA 3+ (Negative); Protein Urine UA NEGATIVE (Negative); Specific Gravity Urine UA <=1.005 (1.000-1.035); Urobilinogen Urine UA 0.2 E.U./dL (0.2); pH Urine UA 5.5 (4.5-8.0)
[2020-06-16 09:30] VITALS: BP 145/79; PULSE 68; O2SAT 98
[2020-06-16 09:55] LABS: Culture Indicated Urine Cult Not Indicated; RBC Urine 1-5/HPF (0-5/HPF)
[2020-06-16 10:00] VITALS: PULSE 78; O2SAT 98
== END 2020-06-16 10:28 | disposition home or self-care (01) ==
PROVIDERS: Emergency Provider Emergency Medicine; PCP Family Medicine
DX: N20.0 Calculus of kidney (principal)
CPT/HCPCS: 36415; 74176; 80053; 81001; 82550; 85025; 99283; 99284

== ENCOUNTER → 2020-06-27 17:25 | Outpatient (CLI) | payer OTHER, SELFPAY | PROVIDERS: PCP Family Medicine; Referring Provider Internal Medicine; Visit Provider Internal Medicine | DX: Z23 Encounter for immunization (principal) | CPT/HCPCS: 90471; 90686 ==

== ENCOUNTER → 2020-09-23 13:54 | Outpatient (CLI) | payer OTHER, SELFPAY ==
--- NOTE | 2020-09-23 16:29 | DIET.PN ---
Diabetes Intake: Initial Assessment Assess: Mr. Ramsay is a 55 YOM referred for type 2 diabetes w/ kidney stones. He has been very cautious of his food intake to avoid another kidney stone, but is not sure what he should be eating to manage calcium oxalate stones and glucose. He recently injured his knee and has not been able to exercise or even walk much for some time. Labs: Per pt report: A1c: 6.5 Meds: glargine 30 u p.m. novolin 20-25 u Diet: per 24 hr recall: B: wheat cereal w/ 1/2 c milk and low sugar yogurt; omelet w/onion and cheddar L: 1 cup wheat pasta w/ EVOO w/ parmesan, turkey or ham D: turkey w/ salad or green beans and red potato Sn: fruit (apple/pear/orange); nuts Likes: kidney beans, red beets, apples, chocolate Wt: 215lb Ht: 71in BMI: 30 BP: na DX: Altered nutrition related laboratory values related to impaired glucose metabolism, lack of previous exposure to nutrition information as evidenced by pt report, diagnosis of diabetes, previous diet high in refined carbohydrates. Intervention: 1. Completed intake assessment. Discussed barriers to care. 2. Discussed pathophysiology of diabetes. Reviewed A1c and its correlation to blood glucose numbers. Discussed recommended BG ranges. 3. Discussed importance of self-monitoring, how often, and when to check. 4. Reviewed hyper/hypoglycemia and treatment. 5. Reviewed safe disposal of equipment (strip/lancets/insulin needles). 6. Created SMART goals for pt self-care and success. 7. Discussed program curriculum outline and class needs based on individual goals. SMART Goals: 1. Pt goal weight of 195 lbs through learning carbohydrate counting, appropriate food portions and beginning exercise program. Monitor/Evaluate: Pt will attend full DSME program. Basic Nutrition class scheduled for Oct 01. Today?s visit was done via tele [employer]. 1 hour was spent [id number] by video. Patient consented to receive these services via tele [employer] using the [employer] application. Participants in the tele conference were myself and the patient only. I was located at [facility] and the patient at his/her home.
== END ==
PROVIDERS: PCP Family Medicine; Referring Provider Family Medicine; Visit Provider Family Medicine
DX: E11.9 Type 2 diabetes mellitus without complications (principal); E66.9 Obesity, unspecified; Z87.442 Personal history of urinary calculi; Z79.4 Long term (current) use of insulin; Z71.3 Dietary counseling and surveillance; Z68.30 Body mass index [BMI] 30.0-30.9, adult
CPT/HCPCS: G0108

== ENCOUNTER → 2020-09-27 11:12 | Outpatient (CLI) | payer OTHER, SELFPAY ==
--- NOTE | 2020-09-27 | DI.MRI.S_ITS ---
PROCEDURE: MR KNEE RT WO CON INDICATIONS: Unspecified internal derangement of right knee TECHNIQUE: Noncontrast sagittal PD fast spin echo and T2 fast spin echo with fat saturation, sagittal 3-D FLASH with fat saturation; coronal T1 spin echo and PD fast spin echo with fat saturation, and axial PD fast spin echo with fat saturation through the knee. COMPARISON: None. FINDINGS: Image quality: Excellent. Menisci: Medial meniscal tear involving the posterior horn, with abnormal signal extending to the superior articular surface. There is marked truncated appearance of the free margin. Slight partial extrusion of the medial meniscus. Lateral meniscus intact. Cruciate ligaments: Anterior cruciate ligament appears intact. Posterior cruciate ligament appears intact. Medial structures: There is medial bowing of the medial collateral ligament, with mild internal signal changes and no complete rupture. There is adjacent soft tissue edema. The appearance could reflect reactive changes to medial compartment pathology, versus low-grade sprain of the MCL. Pes anserinus tendons appear grossly unremarkable. Semimembranosus tendon appears intact. Lateral structures: The lateral collateral ligament intact. Biceps femoris tendon appears intact. Popliteus tendon grossly unremarkable. Iliotibial band appears intact. Anterior structures: Quadriceps tendon intact. Medial and lateral patellofemoral ligaments intact. There is mild patellar tendinopathy. Prepatellar and superficial infrapatellar subcutaneous edema/fluid. Bones and cartilage: No focal marrow contusion or discrete low signal fracture line. Within the medial compartment, low-grade surface fraying of the femoral tibial cartilage Within the lateral compartment, no focal cartilage defect. Within the patellofemoral compartment, surface fraying and intrasubstance signal changes of the femoral trochlear and patellar cartilage. Joint space: No joint effusion. No Soriano's cyst. No specific evidence of intra-articular loose body. IMPRESSION: Medial meniscal tear involving the posterior horn with slight partial extrusion. Mild degenerative joint disease Patellar tendinopathy with adjacent and prepatellar subcutaneous edema/fluid Dictated by: Hemanth Gabriel M.D. on 09/27/2020 at 12:18 Approved by: Hemanth Gabriel M.D. on 09/27/2020 at 12:30
== END ==
PROVIDERS: PCP Family Medicine; Referring Provider Orthopaedic Surgery; Visit Provider Orthopaedic Surgery
DX: S83.241A Other tear of medial meniscus, current injury, right knee, initial encounter (principal); M17.11 Unilateral primary osteoarthritis, right knee
CPT/HCPCS: 73721

== ENCOUNTER → 2020-09-27 12:04 | Outpatient (CLI) | payer OTHER, SELFPAY ==
[2020-09-27] MEDS: COVID-19 VACC(MODERNA-1)/PF 100 MCG/0.5 ML VIAL IM (12:13)
== END ==
PROVIDERS: PCP Family Medicine; Visit Provider Internal Medicine
DX: Z23 Encounter for immunization (principal)
CPT/HCPCS: 0011A; 91301

== ENCOUNTER → 2020-09-28 08:23 | Outpatient (ROUT) | payer OTHER, SELFPAY ==
[2020-09-28 09:45] LABS: Add Manual Diff / Slide Review NO; Basophils Absolute Auto 100 /uL (0-100); Basophils Percent Auto 0.7 % (0-2); Eosinophils Absolute Auto 500 /uL (0-450); Eosinophils Percent Auto 5.9 % (2-4); Hematocrit 40.3 % (41-53); Hemoglobin 13.7 g/dL (13.5-17.5); Lymphocytes Absolute Auto 1800 /uL (1100-4500); Mean Corpuscular Hemoglobin 28.7 PG (26-34); Mean Corpuscular Volume 84.2 fL (80-100); Monocytes Absolute Auto 500 /uL (0-900); Monocytes Percent Auto 6.3 % (3-14); Neutrophils Absolute Auto 5300 /uL (1500-7000); Neutrophils Percent Auto 65.1 % (50-75); Platelet Count 220 X10^3/uL (150-400); Red Blood Cell Count 4.78 X10^6/uL (4.5-5.9); Red Cell Distribution Width 14.1 % (11.6-14.8); White Blood Cell Count 8.1 X10^3/uL (4.5-11.0)
[2020-09-28 09:58] LABS: Hemoglobin A1C% w Est Avg Glu 6.2 % (4.0-6.0)
[2020-09-28 10:08] LABS: Alanine Aminotransferase 16 IU/L (<50); Albumin 4.6 g/dL (3.5-5.0); Albumin Globulin Ratio 1.3 (1.0-2.8); Alkaline Phosphatase 110 U/L (38-126); Aspartate Aminotransferase 23 IU/L (17-59); BUN Creatinine Ratio 20.5 (6-22); Bilirubin Total 0.6 mg/dL (0.2-1.3); Blood Urea Nitrogen 15 mg/dL (9-20); Calcium 9.3 mg/dL (8.4-10.2); Carbon Dioxide 29 mmol/L (22-32); Chloride 102 mmol/L (98-107); Cholesterol 139 mg/dL (140-199); Estimated Glomerular Filt Rate > 60.0 mL/min (>60); Globulin 3.5 g/dL (1.7-4.1); Glucose 153 mg/dL (70-100); HDL Cholesterol 42 mg/dL (40-60); HEMOLYSIS < 15 (0-50); LDL Cholesterol Calculated 67 mg/dL (<100); Potassium 3.8 mmol/L (3.4-5.1); Sodium 138 mmol/L (137-145); Total Protein 8.1 g/dL (6.3-8.2); Triglycerides 148 mg/dL (35-150)
[2020-09-28 10:23] LABS: Vitamin D 25 Hydroxy (D3) 37.7 ng/mL (30.0-100.0)
== END ==
PROVIDERS: PCP Family Medicine; Visit Provider Family Medicine
DX: E11.9 Type 2 diabetes mellitus without complications (principal); Z79.4 Long term (current) use of insulin
CPT/HCPCS: 36415; 80053; 80061; 82306; 83036; 85025

== ENCOUNTER → 2020-10-05 08:33 | Outpatient (ROUT) | payer OTHER, SELFPAY ==
[2020-10-05 08:40] LABS: Bacteria Urine None Seen; RBC Urine None Seen (0-5/HPF); WBC Urine None Seen (0-5/HPF)
[2020-10-05 10:16] LABS: Appearance Urine UA CLEAR; Bilirubin Urine UA NEGATIVE (NEGATIVE); Color Urine UA YELLOW; Glucose Urine UA NEGATIVE (Negative); Ketones Urine UA NEGATIVE (NEGATIVE); Leukocyte Esterase Urine UA NEGATIVE (NEGATIVE); Nitrite Urine UA NEGATIVE (Negative); Occult Blood Urine UA NEGATIVE (Negative); Protein Urine UA NEGATIVE (Negative); Specific Gravity Urine UA 1.025 (1.000-1.035); Urobilinogen Urine UA 0.2 E.U./dL (0.2)
[2020-10-05 10:51] LABS: Mucus Urine 1+ (Negative)
[2020-10-05 11:04] LABS: Creatinine Urine Random 145.7 mg/dL
[2020-10-05 11:09] LABS: Microalbumi Creatinin Ratio Ur 6.1 ug/mg CR (<30); Microalbumin Urine Random 0.9 mg/dL (0-1.6)
== END ==
PROVIDERS: PCP Family Medicine; Visit Provider Family Medicine
DX: E11.9 Type 2 diabetes mellitus without complications (principal); Z79.4 Long term (current) use of insulin
CPT/HCPCS: 81001; 82043; 82570

== ENCOUNTER → 2020-10-24 12:13 | Outpatient (CLI) | payer OTHER, SELFPAY ==
[2020-10-24] MEDS: COVID-19 VACC #2, MRNA(MOD) 100 MCG/0.5 ML VIAL IM (12:23)
== END ==
PROVIDERS: PCP Family Medicine; Visit Provider Internal Medicine
DX: Z23 Encounter for immunization (principal)
CPT/HCPCS: 0012A; 91301

== ENCOUNTER → 2020-11-01 15:04 | Outpatient (CLI) | payer OTHER, SELFPAY ==
[2020-11-01 15:33] LABS: COVID19 -Nasal RAPID Negative (Negative)
== END ==
PROVIDERS: PCP Family Medicine; Visit Provider Physician Assistant
DX: Z01.812 Encounter for preprocedural laboratory examination (principal); Z20.822 Contact with and (suspected) exposure to COVID-19
CPT/HCPCS: 87635

== ENCOUNTER 2020-11-04 09:02 | Day surgery (SDC) | payer OTHER, SELFPAY ==
[2020-11-04] VITALS (13 sets, daily range): BP systolic 105–159; BP diastolic 57–93; PULSE 61–98; RESP 9–97; TEMP 35.7–36.4; O2SAT 14–100; BMI 31.2
--- NOTE | 2020-11-04 09:33 | PM.PREOP ---
Pre-operative Note COVID-19 COVID-19 status: Negative Result date/Date tested (Pos, Neg/Pending): 11/01/20 Interval Note History & Physical reviewed/Exam performed by Physician: Yes Changes to H&P: No
[2020-11-04] MEDS: LACTATED RINGERS 1,000 ML 42 ML IV ×2 (09:42→12:21)
[2020-11-04] MEDS: CLINDAMYCIN 600 MG/50 ML PIGGYBACK 50 MG IV (10:21)
[2020-11-04] MEDS: ACETAMINOPHEN IV 1,000 MG/100 ML VIAL 400 MG IV (10:45)
--- NOTE | 2020-11-04 10:46 | SUR.OPER ---
Supine on padded OR bed, head on pillow, arms secured on padded arm boards at <90 degrees abduction, legs uncrossed, right leg under control of surgeon, knee brace under right knee, safety belt at pelvis, tape over blanket over left lower leg.
[2020-11-04] MEDS: BUPIVACAINE 0.5% (PF) VIAL 30 ML INJ (10:53)
[2020-11-04] MEDS: MORPHINE 4 MG/ML INJ INJ (10:54)
--- NOTE | 2020-11-04 11:22 | PM.OP.1 ---
Operative Date/Time/Diagnoses Date of procedure: 11/04/20 Time of procedure: 11:22 Pre-op diagnosis: Right knee medial meniscus tear and mild osteoarthritis Post-op diagnosis: same Procedure & Clinicians Procedure: Right knee arthroscopic partial medial meniscectomy Same procedure as scheduled: Yes Indications: The patient is a 55-year-old gentleman who has had right knee pain that has not responded to non operative measures with exercise and intermittent corticosteroid injection. His pain has become quite severe. He has requested arthroscopic partial medial meniscectomy after discussion the risks benefits and alternatives. Risks discussed included but were not limited to: Failure to improve, stiffness, infection, nerve damage, deep venous thrombosis, pulmonary embolism, stroke, myocardial infarction, permanent paralysis and . Surgeon: Basilio Hawkins Click Yes if Unassisted: Yes Anesthesia Type: General and Local Operative Notes Findings: 1. Suprapatellar pouch notable for a transverse complete suprapatellar plica which was excised. There was also generalized synovial inflammation throughout the knee. 2. Patellofemoral joint notable for grade 2 chondromalacia on the central portion of the patella with minor degenerative changes in the trochlear groove 3. Medial and lateral gutters notable for synovial inflammation and small osteophytes. 4. Medial compartment notable for grade 3 chondromalacia on the medial femoral condyle measuring approximately 3 cm in diameter on the weight-bearing surface. There is also grade 2 fraying of the tibial cartilage. There was a complex posterior horn medial meniscus tear consistent with the MRI. 5. Intercondylar notch notable for small osteophytes with normal ACL and visualized portion of the PCL. 6. Lateral compartment notable for grade 1 softening of the tibial plateau cartilage with intact femoral cartilage and normal lateral meniscus 7. Normal posterolateral compartment except for synovial inflammation 8. Normal posterior medial compartment with intact meniscal insertion. Closure Type: primary Specimen(s): none sent Prosthetic devices, grafts, tissues, transplants, or devices: None Estimated Blood Loss (mL): 5 Blood products transfused: none Tourniquet time (min): 0 Procedure in detail: The patient was seen in the preoperative area where he identified his right knee as the operative site and this was marked with my initials. He received preoperative antibiotics. He was taken to the operating room and placed on the operating room table in a supine position where he underwent the induction of a general anesthetic. A radio time salesperson-out was performed. A tourniquet was placed about the proximal right thigh. The right leg was prepared from the toes to the tourniquet with ChloraPrep in the usual fashion and draped through sterile drapes. A superomedial portal was created for the pump cannula. The knee was inflated with arthroscopic fluid and a lateral portal created for the arthroscope. Diagnostic arthroscopy ensued with the results given above. During diagnostic arthroscopy medial portal was created for the probe and other tools. Shaver was inserted and used to perform a partial medial meniscectomy. Chondroplasty of the large flap of cartilage on the medial femoral condyle in the medial compartment was also performed. This did not create a full-thickness defect. The shaver was then inserted into the suprapatellar pouch and used to excise the suprapatellar plica. All arthroscopic equipment was then removed. The wounds were closed with 4-0 Monocryl and Steri-Strips. The knee was injected with 20 mL of 0.5 % Marcaine with 4 mg of morphine for postoperative pain control. Dressings of sterile 4x4s, sterile cast padding and an Toro wrap were applied. The patient was then transported to the recovery room in good condition having tolerated the procedure well. Complications: none Post-operative Condition: stable Disposition: PACU Plan for aftercare: The patient will be discharged home this morning. A prescription for [place] has been sent to his pharmacy. He will follow up with me in 2 weeks. He will be allowed to weight bear as tolerated and will be progressed on activities as tolerated.
[2020-11-04] MEDS: fentaNYL 100 MCG/2 ML INJ IV ×2 (11:33→11:40)
[2020-11-04] MEDS: ONDANSETRON 4 MG/2 ML INJ IV (11:59)
--- NOTE | 2020-11-04 12:31 | SUR.PHASEI ---
Pt arrived from PACU, sats 83% on RA with oral airway, Dr Uribe placed nasal airway in mouth in addition to oral airway. These were removed at 1123. Pt states pain was 8/10, medicated with fentanyl x2. offered liquid oxy, pt states this does not work for him, he only takes norco. Rony will not give him this as he already received 1g IV tylenol. Pt states pain is now down to 2/10 but states he is not ready to go home. transfered to phase 2, report to libia ALVARES.
--- NOTE | 2020-11-04 12:32 | SUR.PHASEII ---
PT TRANSFERRED TO [facility] IN STABLE CONDITION, VSS. SURGICAL SITE OBSERVED TO BE C/D/I. PT DENIES ANY NAUSEA AND RATING PAIN 2/10 IN SURGICAL SITE AND REPORTS IS TOLERATING PAIN AT THIS TIME. BED IN LOWEST POSITION AND CALL LIGHT GIVEN TO PT. PT REQUESTING TO REST A LITTLE LONGER BEFORE BEING DISCHARGED TO HOME.
--- NOTE | 2020-11-04 12:56 | SUR.PHASEII ---
BEDSIDE REPORT GIVEN TO DIA YADAV AT THIS TIME. PT IN STABLE CONDITION.
== END 2020-11-04 13:15 | disposition home or self-care (01) ==
PROVIDERS: PCP Family Medicine; Referring Provider Orthopaedic Surgery; Visit Provider Orthopaedic Surgery
PROC: (CPT 29870; principal; 2020-11-04 10:15)
DX: S83.231A Complex tear of medial meniscus, current injury, right knee, initial encounter (principal); M17.0 Bilateral primary osteoarthritis of knee; E11.9 Type 2 diabetes mellitus without complications; Z79.4 Long term (current) use of insulin; J45.909 Unspecified asthma, uncomplicated; F41.9 Anxiety disorder, unspecified; F32.9 Major depressive disorder, single episode, unspecified; F43.10 Post-traumatic stress disorder, unspecified; M25.761 Osteophyte, right knee; M67.51 Plica syndrome, right knee; M94.261 Chondromalacia, right knee
CPT/HCPCS: 29881; J0131; J1885; J2250; J2270; J2405; J2704; J3010

== ENCOUNTER → 2020-12-14 11:38 | Outpatient (CLI) | payer OTHER, SELFPAY ==
--- NOTE | 2020-12-14 11:40 | DI.RAD.S_ITS ---
PROCEDURE: XR KNEE RT 3V INDICATIONS: r knee pain from fall TECHNIQUE: 3 views of the knee were acquired. COMPARISON: [facility], CR, XR KNEE ARTHRITIC SERIES BI, 09/11/2020, 11:22. [facility], CR, XR KNEE ARTHRITIC SERIES BI, 05/08/2019, 13:26. [facility], CR, XR SACRUM COCCYX MIN 2V, 12/14/2020, 11:41. [facility], CR, XR LUMBAR SPINE 2-3V, 12/14/2020, 11:41. [facility], CR, XR KNEE LT 3V, 12/14/2020, 11:41. FINDINGS: Bones: No fractures or dislocations. No suspicious bony lesions. There is mild medial femorotibial joint space narrowing seen, with associated remodeling changes including subchondral sclerosis and osteophyte formation along the jointline. On the sunrise view, there is mild patellofemoral joint space narrowing seen. Osteophyte formation can be seen along the margins of the patella. Soft tissues: There is a mild to moderate joint effusion. No suspicious soft tissue calcifications. IMPRESSION: Osteoarthritic degenerative changes are seen, without an acute bony abnormality identified. Dictated by: Sanchez Rosales M.D. on 12/14/2020 at 11:09 Approved by: Sanchez Rosales M.D. on 12/14/2020 at 11:10
--- NOTE | 2020-12-14 11:40 | DI.RAD.S_ITS ---
PROCEDURE: XR SACRUM COCCYX MIN 2V INDICATIONS: coccyx pain from fall TECHNIQUE: 3 views of the sacrum and coccyx acquired. COMPARISON: [facility], CT, CT KIDNEY URETER BLADDER (KUB), 06/16/2020, 9:35. [facility], CR, XR KNEE RT 3V, 12/14/2020, 11:41. [facility], CR, XR LUMBAR SPINE 2-3V, 12/14/2020, 11:41. [facility], CR, XR KNEE LT 3V, 12/14/2020, 11:41. [facility], CT, CT KUB, 07/15/2020, 16:31. FINDINGS: Bones: No fractures or dislocations. There is a step-off seen involving the distal coccyx, as noted on the lateral view, yet this is stable compared to the prior CT examinations. No suspicious bony lesions. Degenerative changes are seen, including involving the sacroiliac joints. Soft tissues: Visualized bowel gas pattern is normal. No suspicious soft tissue densities. IMPRESSION: No acute plain film abnormality is seen. Stable step-off seen involving the distal coccyx, which is not regarded to be frankly pathologic. Dictated by: Sanchez Rosales M.D. on 12/14/2020 at 11:24 Approved by: Sanchez Rosales M.D. on 12/14/2020 at 11:25
--- NOTE | 2020-12-14 11:40 | DI.RAD.S_ITS ---
PROCEDURE: XR KNEE LT 3V INDICATIONS: left pain from fall TECHNIQUE: 3 views of the knee were acquired. COMPARISON: [facility], CR, XR KNEE ARTHRITIC SERIES BI, 09/11/2020, 11:22. [facility], CR, XR KNEE ARTHRITIC SERIES BI, 05/08/2019, 13:26. [facility], CR, XR SACRUM COCCYX MIN 2V, 12/14/2020, 11:41. [facility], CR, XR LUMBAR SPINE 2-3V, 12/14/2020, 11:41. [facility], CR, XR KNEE RT 3V, 12/14/2020, 11:41. FINDINGS: Bones: No fractures or dislocations. No suspicious bony lesions. Soft tissues: No joint effusion. No suspicious soft tissue calcifications. IMPRESSION: No acute plain film abnormality is seen. Dictated by: Sanchez Rosales M.D. on 12/14/2020 at 11:08 Approved by: Sanchez Rosales M.D. on 12/14/2020 at 11:09
--- NOTE | 2020-12-14 11:40 | DI.RAD.S_ITS ---
PROCEDURE: XR LUMBAR SPINE 2-3V INDICATIONS: low back pain from fall TECHNIQUE: 3 views of the lumbar spine were acquired. COMPARISON: [facility], CT, CT KIDNEY URETER BLADDER (KUB), 06/16/2020, 9:35. [facility], CR, XR KNEE RT 3V, 12/14/2020, 11:41. [facility], CR, XR SACRUM COCCYX MIN 2V, 12/14/2020, 11:41. [facility], CR, XR KNEE LT 3V, 12/14/2020, 11:41. FINDINGS: Bones: 5 [id number] vertebrae are present. There is normal bony alignment. No vertebral body compression fractures. No suspicious bony lesions. Endplate irregularity and sclerosis can be seen at the L2-L3 level. Mild disc space narrowing is seen at this level. The disc heights otherwise appear well-preserved. Lower lumbar spine facet arthropathy is seen. Soft tissues: Overlying bowel gas pattern is normal. No suspicious soft tissue calcifications. IMPRESSION: No acute plain film abnormality is seen. Mild degenerative changes are seen. Dictated by: Sanchez Rosales M.D. on 12/14/2020 at 11:19 Approved by: Sanchez Rosales M.D. on 12/14/2020 at 11:24
== END ==
PROVIDERS: PCP Family Medicine; Referring Provider Physician Assistant; Visit Provider Physician Assistant
DX: M25.561 Pain in right knee (principal); M25.562 Pain in left knee; M53.3 Sacrococcygeal disorders, not elsewhere classified; M54.5 Low back pain
CPT/HCPCS: 72100; 72220; 73562

== ENCOUNTER → 2021-01-20 15:19 | Outpatient (CLI) | payer OTHER, SELFPAY ==
--- NOTE | 2021-01-20 15:21 | DI.RAD.S_ITS ---
PROCEDURE: XR FEMUR RT MIN 2V INDICATIONS: PAIN TECHNIQUE: 4 views of the femur were acquired. COMPARISON: None. FINDINGS: Bones: No fractures or dislocations. No suspicious bony lesions. Scattered degenerative subchondral sclerosis and spurring. Mild right knee osteoarthritis Soft tissues: No suspicious soft tissue calcifications or masses. IMPRESSION: Negative examination as above. If the patient's pain or other symptoms persist, consider further evaluation with MRI Dictated by: Hemanth Gabriel M.D. on 01/20/2021 at 16:08 Approved by: Hemanth Gabriel M.D. on 01/20/2021 at 16:10
== END ==
PROVIDERS: PCP Family Medicine; Referring Provider Family Medicine; Visit Provider Family Medicine
DX: M79.604 Pain in right leg (principal); M17.11 Unilateral primary osteoarthritis, right knee
CPT/HCPCS: 73552

== ENCOUNTER → 2021-02-15 08:54 | Outpatient (ROUT) | payer OTHER, SELFPAY ==
[2021-02-15 09:48] LABS: Add Manual Diff / Slide Review NO; Basophils Absolute Auto 100 /uL (0-100); Basophils Percent Auto 0.7 % (0-2); Eosinophils Absolute Auto 200 /uL (0-450); Eosinophils Percent Auto 2.3 % (2-4); Hematocrit 37.7 % (41-53); Lymphocytes Absolute Auto 2700 /uL (1100-4500); Lymphocytes Percent Auto 26.5 % (25-40); Mean Corpuscular HGB Conc 34.6 % (30-36); Mean Corpuscular Hemoglobin 28.7 PG (26-34); Mean Corpuscular Volume 83.1 fL (80-100); Monocytes Absolute Auto 800 /uL (0-900); Monocytes Percent Auto 8.1 % (3-14); Neutrophils Absolute Auto 6300 /uL (1500-7000); Neutrophils Percent Auto 62.4 % (50-75); Platelet Count 243 X10^3/uL (150-400); Red Blood Cell Count 4.54 X10^6/uL (4.5-5.9); Red Cell Distribution Width 14.3 % (11.6-14.8); White Blood Cell Count 10.1 X10^3/uL (4.5-11.0)
[2021-02-15 10:22] LABS: Alanine Aminotransferase 14 IU/L (<50); Albumin 4.5 g/dL (3.5-5.0); Albumin Globulin Ratio 1.5 (1.0-2.8); Alkaline Phosphatase 98 U/L (38-126); Aspartate Aminotransferase 20 IU/L (17-59); Bilirubin Total 0.3 mg/dL (0.2-1.3); Blood Urea Nitrogen 17 mg/dL (9-20); Calcium 9.6 mg/dL (8.4-10.2); Carbon Dioxide 29 mmol/L (22-32); Chloride 101 mmol/L (98-107); Estimated Glomerular Filt Rate > 60.0 mL/min (>60); Glucose 148 mg/dL (70-100); HEMOLYSIS < 15 (0-50); Potassium 3.7 mmol/L (3.4-5.1); Sodium 139 mmol/L (137-145); Total Protein 7.5 g/dL (6.3-8.2)
== END ==
PROVIDERS: PCP Family Medicine; Visit Provider Family Medicine
DX: E11.65 Type 2 diabetes mellitus with hyperglycemia (principal); Z79.4 Long term (current) use of insulin; I10 Essential (primary) hypertension
CPT/HCPCS: 36415; 80053; 85025

== ENCOUNTER → 2021-02-23 10:01 | Outpatient (ROUT) | payer OTHER, SELFPAY ==
[2021-02-23 10:07] LABS: Bacteria Urine None Seen; RBC Urine None Seen (0-5/HPF)
[2021-02-23 10:33] LABS: Creatinine Urine Random 183.2 mg/dL
[2021-02-23 10:34] LABS: Appearance Urine UA CLEAR; Bilirubin Urine UA NEGATIVE (NEGATIVE); Color Urine UA YELLOW; Glucose Urine UA NEGATIVE (Negative); Ketones Urine UA NEGATIVE (NEGATIVE); Leukocyte Esterase Urine UA NEGATIVE (NEGATIVE); Nitrite Urine UA NEGATIVE (Negative); Occult Blood Urine UA NEGATIVE (Negative); Protein Urine UA NEGATIVE (Negative); Specific Gravity Urine UA >=1.030 (1.000-1.035); Urobilinogen Urine UA 0.2 E.U./dL (0.2)
[2021-02-23 10:37] LABS: Microalbumin Urine Random 1.3 mg/dL (0-1.6)
[2021-02-23 10:46] LABS: Culture Indicated Urine Cult Not Indicated; WBC Urine 0-1/HPF (0-5/HPF)
== END ==
PROVIDERS: PCP Family Medicine; Visit Provider Family Medicine
DX: R39.9 Unspecified symptoms and signs involving the genitourinary system (principal)
CPT/HCPCS: 81001; 82043; 82570

== ENCOUNTER → 2021-03-07 13:08 | Outpatient (CLI) | payer OTHER, SELFPAY ==
--- NOTE | 2021-03-07 | DI.MRI.S_ITS ---
PROCEDURE: MR KNEE LT WO CON INDICATIONS: LEFT KNEE INJURY TECHNIQUE: Noncontrast sagittal PD fast spin echo and T2 fast spin echo with fat saturation, sagittal 3-D FLASH with fat saturation; coronal T1 spin echo and PD fast spin echo with fat saturation, and axial PD fast spin echo with fat saturation through the knee. COMPARISON: [facility], MR, MR KNEE RT WO CON, 09/27/2020, 11:18. FINDINGS: Image quality: Excellent. Menisci: Complex oblique tear involving posterior horn of medial meniscus is seen extending to inferior articulating surface. There is no evidence of focal lateral meniscal tear. The meniscal root ligaments appear intact. Cruciate ligaments: The anterior and posterior cruciate ligaments appear intact. Medial structures: Moderate MCL sprain/partial-thickness tear is seen with thickened ligament and surrounding edema.. The posterior oblique ligament, semimembranosus tendon insertions, oblique popliteal ligament, and meniscocapsular junction appear intact. Visualized portions of the pes anserinus tendons appear normal. No abnormal bursal fluid. Lateral structures: The lateral collateral ligament, long and short heads of the biceps femoris tendon appear intact. The popliteus tendon appears normal; the popliteofibular ligament appears intact. The posterosuperior and anteroinferior popliteomeniscal fascicles appear intact. The arcuate and fabellofibular ligaments appear intact, on either side of the lateral inferior geniculate artery. Iliotibial band appears normal. Anterior structures: The quadriceps and patellar tendons appear intact. Patellar alignment is normal. No femoral trochlear dysplasia or ventral trochlear prominence. No edema in the infrapatellar fat pad. Bones and cartilage: Marrow edema involving medial periphery of proximal tibia extending to medial tibial plateau is seen without discrete fracture line. No other area of abnormal marrow signal is seen. The cartilage of the medial and lateral femorotibial compartments, as well as the patellofemoral compartment, appears normal in thickness. Joint space: There is moderate suprapatellar joint effusion. No Soriano's cyst. Normal appearing synovial plicae are incidentally noted. IMPRESSION: 1. Bony contusion involving medial periphery of proximal tibia extending to medial tibial plateau. No fracture or dislocation. Moderate suprapatellar joint effusion. 2. Complex oblique tear involving posterior horn of medial meniscus extending to inferior articulating surface. No focal lateral meniscal tear. 3. Cruciate ligaments are intact. 4. Moderate grade MCL sprain/partial-thickness tear. Dictated by: William Jeter M.D. on 03/07/2021 at 14:14 Approved by: William Jeter M.D. on 03/07/2021 at 14:24
== END ==
PROVIDERS: PCP Family Medicine; Referring Provider Orthopaedic Surgery; Visit Provider Orthopaedic Surgery
DX: S83.232A Complex tear of medial meniscus, current injury, left knee, initial encounter (principal); S80.02XA Contusion of left knee, initial encounter; S83.412A Sprain of medial collateral ligament of left knee, initial encounter; M25.462 Effusion, left knee; X58.XXXA Exposure to other specified factors, initial encounter
CPT/HCPCS: 73721

== ENCOUNTER → 2021-03-24 10:43 | Outpatient (ROUT) | payer OTHER, SELFPAY ==
[2021-03-24 11:19] LABS: Creatine Kinase 81 U/L (55-170)
== END ==
PROVIDERS: PCP Family Medicine; Visit Provider Family Medicine
DX: M79.10 Myalgia, unspecified site (principal)
CPT/HCPCS: 36415; 82550

== ENCOUNTER → 2021-05-03 08:25 | Outpatient (ROUT) | payer OTHER, SELFPAY ==
[2021-05-03 09:11] LABS: Add Manual Diff / Slide Review NO; Basophils Absolute Auto 0 /uL (0-100); Basophils Percent Auto 0.5 % (0-2); Eosinophils Absolute Auto 500 /uL (0-450); Eosinophils Percent Auto 6.3 % (2-4); Hematocrit 40.4 % (41-53); Hemoglobin 13.7 g/dL (13.5-17.5); Lymphocytes Absolute Auto 2000 /uL (1100-4500); Lymphocytes Percent Auto 26.5 % (25-40); Mean Corpuscular Hemoglobin 28.4 PG (26-34); Mean Corpuscular Volume 83.5 fL (80-100); Monocytes Absolute Auto 500 /uL (0-900); Monocytes Percent Auto 6.7 % (3-14); Neutrophils Absolute Auto 4500 /uL (1500-7000); Platelet Count 250 X10^3/uL (150-400); Red Blood Cell Count 4.83 X10^6/uL (4.5-5.9); Red Cell Distribution Width 14.7 % (11.6-14.8); White Blood Cell Count 7.5 X10^3/uL (4.5-11.0)
[2021-05-03 09:38] LABS: Alanine Aminotransferase 19 IU/L (<50); Albumin 4.7 g/dL (3.5-5.0); Albumin Globulin Ratio 1.5 (1.0-2.8); Alkaline Phosphatase 89 U/L (38-126); Aspartate Aminotransferase 29 IU/L (17-59); BUN Creatinine Ratio 21.1 (6-22); Bilirubin Total 0.6 mg/dL (0.2-1.3); Blood Urea Nitrogen 15 mg/dL (9-20); Calcium 10.1 mg/dL (8.4-10.2); Carbon Dioxide 27 mmol/L (22-32); Chloride 104 mmol/L (98-107); Estimated Glomerular Filt Rate > 60.0 mL/min (>60); Globulin 3.2 g/dL (1.7-4.1); Glucose 94 mg/dL (70-100); HEMOLYSIS < 15 (0-50); Potassium 4.5 mmol/L (3.4-5.1); Sodium 140 mmol/L (137-145); Total Protein 7.9 g/dL (6.3-8.2)
[2021-05-03 09:43] LABS: Hemoglobin A1C% w Est Avg Glu 5.8 % (4.0-6.0)
== END ==
PROVIDERS: PCP Family Medicine; Visit Provider Family Medicine
DX: E11.65 Type 2 diabetes mellitus with hyperglycemia (principal); Z79.4 Long term (current) use of insulin
CPT/HCPCS: 36415; 80053; 83036; 85025

== ENCOUNTER → 2021-05-17 11:53 | Outpatient (CLI) | payer OTHER, SELFPAY ==
[2021-05-17 14:31] LABS: COVID19 -Nasal RAPID Negative (Negative)
== END ==
PROVIDERS: PCP Family Medicine; Visit Provider Nurse Practitioner
DX: Z01.812 Encounter for preprocedural laboratory examination (principal); Z20.822 Contact with and (suspected) exposure to COVID-19
CPT/HCPCS: 87635

== ENCOUNTER 2021-05-19 12:25 | Day surgery (SDC) | payer OTHER, SELFPAY ==
[2021-05-13 07:50] VITALS: BMI 30.5
[2021-05-19] VITALS (17 sets, daily range): BP systolic 116–150; BP diastolic 38–83; PULSE 66–86; RESP 8–20; TEMP 36.1–36.6; O2SAT 93–100; BMI 30.5
[2021-05-19] MEDS: LACTATED RINGERS 1,000 ML 42 ML IV (13:12)
[2021-05-19] MEDS: CEFAZOLIN 1 GM VIAL IV (14:57)
[2021-05-19] MEDS: MORPHINE 4 MG/ML INJ INJ (15:20)
[2021-05-19] MEDS: BUPIVACAINE 0.5% (PF) VIAL 30 ML INJ (15:20)
--- NOTE | 2021-05-19 15:32 | PM.PREOP ---
Pre-operative Note COVID-19 COVID-19 status: Negative Result date/Date tested (Pos, Neg/Pending): 05/17/21 Interval Note History & Physical reviewed/Exam performed by Physician: Yes Changes to H&P: No
--- NOTE | 2021-05-19 15:37 | P.OP_ITS ---
Operative Date/Time/Diagnoses Date of procedure: 05/19/21 Time of procedure: 15:38 Pre-op diagnosis: 1. Left knee medial meniscus tear 2. Mild left knee osteoarthritis Post-op diagnosis: same Procedure & Clinicians Procedure: 1. Left knee arthroscopic partial medial meniscectomy 2. Left knee arthroscopic chondroplasty of the medial femoral condyle and patella 3. Incidental plica excision in the suprapatellar pouch Same procedure as scheduled: Yes Indications: The patient is a 56-year-old gentleman who has had progressively worsening left knee pain with an MRI that appears to show a medial meniscus tear and some early arthritic change. He has agreed to arthroscopic management after failure of non operative management and discussion of the risks benefits and alternatives. Risks discussed included but were not limited to: Failure to improve, stiffness, infection, nerve damage, deep venous thrombosis, pulmonary embolism, stroke, myocardial infarction, permanent paralysis and . Surgeon: Basilio Hawkins Click Yes if Unassisted: Yes Anesthesia Type: General and Local Operative Notes Findings: 1. Suprapatellar pouch notable for significant inflammatory changes in the synovium and a thick nearly complete suprapatellar plica 2. Patellofemoral joint notable for grade 2 fraying of the medial facet of the patella with mild changes in the trochlea. 3. Medial and lateral gutters notable for synovial inflammation and osteophytes beginning to form on the medial femoral condyle 4. Medial compartment notable for complex posterior horn degenerative meniscus tear and widespread fraying of the femoral cartilage in the weight-bearing surface, grade 2. There are also mild changes on the tibia. 5. Intercondylar notch notable for additional synovial inflammation but intact appearing ACL and visualized portion of the PCL. 6. Normal lateral compartment with no meniscus tear and well-preserved cartilage 7. Posterolateral compartment notable for synovial inflammation 8. Posterior medial compartment notable for synovial inflammation Closure Type: primary Specimen(s): none sent Estimated Blood Loss (mL): 10 Blood products transfused: none Tourniquet time (min): 0 Procedure in detail: The patient was seen in the preoperative area where he identified his left knee as the operative site and this was marked with my initials. He received preoperative antibiotics and was taken to the operating room and placed on the operating room table in a supine position. He underwent induction of general anesthetic. A tourniquet was placed on his proximal left thigh. His left leg was prepared from the toes the tourniquet with ChloraPrep in the usual fashion draped through sterile drapes. Prior to prepping and draping a realtime captioner-out was performed. The left knee was entered through a superior medial portal and the pump cannula inserted. Knee was distended with arthroscopic fluid and a lateral portal created for the arthroscopic cannula. Diagnostic arthroscopy ensued with the result given above. During diagnostic arthroscopy a medial portal was created for the probe and other tools. The 4.2 mm meniscal shaver was then inserted and used to debride the medial meniscus tear to a stable base. It was also used to perform a chondroplasty of the medial femoral condyle and the patella. It was finally inserted in the suprapatellar pouch in used to excise the suprapatellar plica. At the conclusio n of this all arthroscopic equipment was removed. The wounds were closed with 4-0 Monocryl and Steri-Strips. The knee was injected with 10 mL 0.5% plain Marcaine for postoperative pain control. Dressings of sterile 4x4s, sterile cast padding and an Toro wrap were applied and the patient was transported to the recovery room in good condition having tolerated the procedure well. Complications: none Post-operative Condition: stable Disposition: PACU Plan for aftercare: Discharge today with follow-up in my office in 10-14 days. He has been prescribed Stamps for postoperative pain relief.
--- NOTE | 2021-05-19 15:37 | SUR.OPER ---
Supine on padded OR bed, head on pillow, arms secured on padded arm boards at <90 degrees abduction, legs uncrossed, tape over blanket over right leg, left leg controlled by surgeon, arthroscopy leg positioner placed by surgeon on left side of the bed, safety belt at abdomen.
[2021-05-19] MEDS: ONDANSETRON 4 MG/2 ML INJ IV (15:52)
[2021-05-19] MEDS: ACETAMINOPHEN 325 MG TABLET 975 MG PO (16:05)
--- NOTE | 2021-05-19 16:30 | SUR.PHASEI ---
Dr Singleton notified in OR #2 of chest heaviness and EKG ordered at 1618. Dr Tineo at bedside at 1624 to see patient. See order for Trop. Pt denies pain, only chest heaviness and asks if he is having a panic attack.
--- NOTE | 2021-05-19 16:44 | SUR.PHASEI ---
1640 Dr Tineo at bedside to view EKG. Pt state he feels a bit better. Wonders if he needs an albuterol inhaler to help with breathing (uses inhaler rarely at home). Plan to breathing treatment and Lorazepam. Pt with history of panic attacks.
[2021-05-19] MEDS: ALBUTEROL 2.5 MG/3 ML NEB (ADULT) INH (16:48)
--- NOTE | 2021-05-19 16:54 | SUR.PHASEI ---
After 1/2 dose of Albuterol patient states he feels dizzy. Head put down and neb stopped. 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 Pt states he feels better with this head down. IVF are infusing and pt updated on stable VS.
[2021-05-19] MEDS: LORazepam 2 MG/ML INJ 0.25 MG IV (16:57)
--- NOTE | 2021-05-19 17:01 | SUR.PHASEI ---
Dr Tineo here at bedside. Pt updating MD about his functional neurological condition.
--- NOTE | 2021-05-19 17:29 | SUR.PHASEI ---
Dr Tineo in to see patient. Pt states he is feeling better. Shaking has resolved. Still feels slightly dizzy. Breathing easy. Plan is for patient to rest and then if feeling ok discharge to home.
--- NOTE | 2021-05-19 18:05 | SUR.PHASEI ---
Called and spoke to Dr Briseno. Pt requested ondansteron for home due to hx of nausea after his previous knee surgery and for which he took Zofran ODT. states she sent Rx to pharmacy at [facility] in [facility].
--- NOTE | 2021-05-19 20:07 | SUR.PHASEII ---
1825 Patient discharged to home after standing at bedside and voiding, steady on feet, no dizziness or SOB or chest pain with pain well controlled.
--- OUTSIDE RECORDS SUMMARY | 2021-06-10 07:57 | XMS_ITS | Referral Summary ---
:1965 Author Organization [facility] Address [address] [place] [address] Care Team Providers Name Role Phone Sandro Davalos MD Primary Care Provider Reason for Referral Consultation (Routine) - Closed Specialty Diagnoses / Procedures Referred By Contact Refer red To Contact Nutrition Diagnoses Type 2 diabetes mellitus without complication, with long-term current use of insulin ([facility]) Sandro Davalos MD [facility] [address] [place], [place] [address] [place] [address] Referral ID Status Reason Start Date Expiration Date Visits V isits Requested Authorized [id number] Closed Specialty 07/22/2020 07/17/2021 6 6 Services Required Scheduling Instructions He specifically would like to see Teressa Mcdonough at [facility]. [phone] extension [phone] Reason for Visit Reason Comments Follow-up DM/Asthma Encounter Details Date Type Department Care Team Description 07/19/2020 Office Visit [facility] Sandro Davalos (Primary Dx); Quoc Tejada MD Type 2 diabetes mellitus without complic ation, with long-term current use of insulin ([facility]) Medicine [facility] [address] [place] [address] [id number] Allergies Active Allergy Reactions Severity Noted Date Comments Aspirin 07/11/2009 ASTHMA rash Iodinated Contrast Media 09/15/2016 Other reaction( s): Hallucinations Latex Anaphylaxis High 07/01/2017 Meperidine 06/08/2019 combative Penicillin G Rash Low 07/11/2009 Sulfamethoxazole Anaphylaxis High 07/11/2009 Tropical Fruit Flavor Anaphylaxis High 07/01/2017 IE BAN SNEHA, KIWI, UMU, PINEAPPLE, CANT ALOPE documented as of this encounter (statuses as of 06/09/2021) Medications Medication Sig Dispensed Refills Start End Date Status Date cholecalciferol, Take 5,000 0 Ac tive vitamin D3, 1,000 Units by mouth unit every morning tablet,chewable blood glucose check BS 4x qd 0 A ctive control, normal 5 solution blood sugar Check FSBS 50 strip 11 Active diagnostic (glucose daily--One 8 blood) touch stripIndications: Type 2 diabetes mellitus without complication, with long-term current use of insulin ([facility]) rybiozlj-cgkb-vvf-f Take 1 tablet 0 Active olic acid by mouth every (multivitamin-iron- morning minerals-folic acid) 3,500-18-0.4 unit-mg-mg tablet,chewable pantoprazole Take 40 mg by 0 Act reji (PROTONIX) 40 mg EC mouth once 0 tablet daily as needed mupirocin 0 Active (BACTROBAN) 2 % 0 ointment EPINEPHrine Inject 1 mL 0 Active (EPIPEN) 0.3 mg/0.3 into the thigh 0 mL injection syringe albuterol HFA Inhale 2 puffs 18 g 3 05/20/20 D iscontinued (PROVENTIL every 4 (four) 8 21 (Reo rder) HFA;VENTOLIN HFA) hours as 90 mcg/actuation needed for inhalerIndications: wheezing Bronchospasm with bronchitis, acute ascorbic acid/zinc Take 2 tablets 0 Discontinued (ZINC by mouth 21 (Therapy SULFATE-VITAMIN C nightly co mpleted) ORAL) gabapentin Take 500 mg by 0 08/02/20 Disc ontinued (NEURONTIN) 100 mg mouth 2 (two) 20 (Therapy capsule times a day complete d) acetaminophen Take 1 tablet 30 tablet 0 08/29/20 Di scontinued (TYLENOL) 500 mg (500 mg total) 9 20 (Therapy tablet by mouth every compl eted) 4 (four) hours as needed for moderate pain BD ULTRA-FINE SHORT 0 08/03/20 Discontinued PEN NEEDLE 31 gauge 9 20 (Reorder) x 02/02 needle LORazepam (ATIVAN) 0 08/29/20 D iscontinued 0.5 mg tablet 0 20 (Thera py completed) propranoloL Take 1 tablet 60 tablet 2 05/23/20 Disc ontinued (INDERAL) 20 mg (20 mg total) 0 21 (Reorder) tabletIndications: by mouth 2 Hypertension, (two) times a unspecified type day as needed (for High Blood Pressure) atorvastatin Take 1 tablet 90 tablet 3 02/06/20 Dis continued (LIPITOR) 10 mg (10 mg total) 0 21 tabletIndications: by mouth daily Hyperlipidemia, unspecified hyperlipidemia type metFORMIN Take 2 tablets 120 tablet 11 02/08/20 Disc ontinued (GLUCOPHAGE) 500 mg (1,000 mg 0 21 tabletIndications: total) by Type 2 diabetes mouth 2 (two) mellitus without times a day complication, with with meals long-term current use of insulin ([facility]) insulin glargine Inject 30 10 mL 11 08/29/20 Dis continued (LANTUS) 100 Units under 0 20 (Reor meaghan) unit/mL injection the skin (vial)Indications: nightly Type 2 diabetes mellitus without complication, with long-term current use of insulin ([facility]), Controlled type 2 diabetes mellitus without complication, without long-term current use of insulin ([facility]) fluticasone HFA Inhale 2 puffs 12 g 11 08/02/20 Discontinued (FLOVENT HFA) 220 2 (two) times 0 20 (Therapy mcg/actuation a day Rinse comp leted) inhaler mouth with water after use to reduce aftertaste and incidence of candidiasis. Do not swallow. REGULAR INSULIN Inject 20 10 mL 5 02/25/20 Disc ontinued (NovoLIN R Regular Units under 0 21 (Reorder) U-100 Insuln) 100 the skin 2 unit/mL injection (two) times a (VIAL)Indications: day before Controlled type 2 meals INJECT diabetes mellitus with meals without once daily PER complication, SLIDING without long-term SCALE(before current use of lunch) insulin ([facility]), Type 2 diabetes mellitus without complication, with long-term current use of insulin ([facility]) insulin 1 Syringe 4 100 each 9 03/29/20 Disconti nued syringe-needle (four) times a 0 21 U-100 (BD Insulin day Syringe Ultra-Fine) 0.3 mL 31 gauge x 5/16 syringe HYDROcodone-acetami Take 1 tablet 0 Discontinued nophen (NORCO) by mouth every 0 20 (Reorder) 5-325 mg 6 (six) hours as needed for pain tamsulosin (FLOMAX) Take 1 capsule 30 capsule 2 03/09 Discontinued 0.4 mg capsule (0.4 mg total) 0 20 (Reorder) by mouth daily ondansetron ODT 0 08/29/20 Disc ontinued (ZOFRAN-ODT) 4 mg 0 20 (T herapy disintegrating compl eted) tablet documented as of this encounter (statuses as of 06/09/2021) Active Problems Problem Noted Date Left ureteral calculus 07/16/2020 Overview: Added automatically from request for eliazar smooth [id number] Type 2 diabetes mellitus with hyperglycemia, with long -term current use of 07/03/2019 insulin Recent head trauma 07/03/2019 Functional neurological symptom disorder with mixed sy mptoms 01/11/2019 Onychomycosis 11/14/2018 Degenerative disc disease, cervical 11/02/2018 GERD (gastroesophageal reflux disease) 10/31/2018 Hyperlipidemia 10/04/2018 Electrical shock sensation 10/04/2018 Weakness 10/03/2018 Anxiety 10/03/2018 Near syncope 09/25/2018 Bronchospasm with bronchitis, acute 06/20/2018 Urinary urgency 06/20/2018 Pruritus of skin 06/20/2018 Routine physical examination 04/27/2018 Dysuria 04/27/2018 Other problems related to employment 04/27/2018 Travel advice encounter 04/27/2018 Left foot pain 04/07/2018 Hypertension 02/27/2018 PTSD (post-traumatic stress disorder) 02/23/2018 Controlled type 2 diabetes mellitus without complicati on, without 12/01/2017 long-term current use of insulin Overview: Dx: 2014; DM2; Metformin; Insulin 3-7 BI D; A1c-6.9 Anxiety and depression 12/01/2017 Left arm pain 12/01/2017 OCD (obsessive compulsive disorder) Klinefelter syndrome Testicular hypofunction Asthma documented as of this encounter (statuses as of 06/09/2021) Resolved Problems Problem Noted Date Resolved Date Major depressive disorder, 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 Factitious disorder 09/28/2018 10/03/2018 documented as of this encounter (statuses as of 06/09/2021) Immunizations Name Administration Dates Next Due FLU PF 6+Mos Quad (Fluzone, FluLaval, 06/13/2020, 07/21/2019 , 06/20/2018 Fluarix) Hep A, Adult (Havrix, Vaqta) 11/14/2018, 04/27/2018, 012 Influenza, Quadrivalent 06/30/2010 Pneumococcal Conjugate PCV13 (Fujzcvc39) 10/21/2011 Tdap (Boostrix,Adacel) 12/30/2011 documented as of this encounter Social History Tobacco Use Types Packs/Day Years Used Date Never Smoker Smokeless Tobacco: Never Used Alcohol Use Standard Drinks/Week Comments No 0 (1 standard drink = 0.6 oz pure alcoho l) Sex Assigned at Date Recorded Not on file Job Start Date Occupation Industry Not on file Not on file Not on file documented as of this encounter Last Filed Vital Signs Vital Sign Reading Time Taken Comments Blood Pressure 118/74 07/19/2020 8:57 AM PDT Pulse 85 07/19/2020 8:57 AM PDT Temperature - - Respiratory Rate - - Oxygen Saturation - - Inhaled Oxygen Concentration - - Weight 98 kg (216 lb) 07/19/2020 8:57 AM PDT Height - - Body Mass Index 30.13 06/25/2020 11:37 AM PDT documented in this encounter Progress Notes Sandro Davalos MD - 07/19/2020 8:40 AM PDT Kidney stone - we reviewed his recent imaging studies occluding the pictures themselves. He had many questions which we discussed. He was encouraged to follow-up with urology as instructed and with me as needed. ?? Diabetes well controlled - this is well controlled with the last A1c at 6.5 on March 20. We will check a set of labs at the earliest convenience (labs are already ordered) and will refer to nutrition for Dietary counseling. Continue current medical management. ?? Patient Education Cystoscopy WHAT YOU NEED TO KNOW: What do I need to know about a cystoscopy? A cystoscopy is a procedure to look inside of your urethra and bladder using a cystoscope. A cystoscope is a small tube with a light and magnifying camera on the end. The procedure is used to diagnose and treat conditions of the bladder, urethra, and prostate. The procedure is also done to remove stones or blood clots from the urethra or bladder. Your healthcare provider may do other tests, such as ureteroscopy, during a cystoscopy. How do I prepare for a cystoscopy? You may need to stop smoking several days before your procedure,if you are having general anesthesia. Tell your healthcare provider what medicines you take. Your healthcare provider will tell you what medicines to take and not to take on the day of your procedure. You may need to stop taking medicines such as anticoagulants, aspirin, and ibuprofen several days before your procedure. He may tell you stop eating after midnight the night before your procedure. You may be asked to drink a large amount of liquids before your procedure. Make plans for someone to driveyou home after your procedure. What will happen during a cystoscopy? ?? You may be given general anesthesia to keep you asleep and pain free during your procedure. Your healthcare provider may give you anesthesia in your spine. With spinal anesthesia the lower part of your body will be numb. You will not feel pain during your procedure. Your healthcare provider may instead use local anesthesia that is put into your urethra and bladder. You will not feel pain, but you may be able to feel some pressure during your procedure. With local anesthesia, you may feel burning or need to urinate when the cystoscope is put in and removed. ?? You will be placed on your back and your feet may be placed in stirrups. The cystoscope will be will be placed through your urethra and into your bladder. The urologist will look at the montoya of your urethra as the scope goes through to your bladder. Your bladder may be filled with an irrigation liquid to help your urologist see inside of your bladder more clearly. Medical tools may be used to remove tissue or stones. Your urologist may use a special tool to stop bleeding in your bladder. If there are blood clots in your bladder, your healthcare provider will inject an irrigation fluid into yourbladder. Then he will use suction to remove the fluid and blood clots. What will happen after the cystoscopy? After you are fully awake, you will go home. After your cystoscopy, it is normal to have pink-colored urine. It is also normal to have an increased need to urinate. You may have burning when you urinate. If you had general anesthesia, it may take at least 24 hours before you feel like your usual self. What are the risks of a cystoscopy? You may bleed more than expected or develop an infection. Swelling caused by the cystoscopy may cause a blockage or slow urine flow. CARE AGREEMENT: You have the right to help plan your care. Learn about your health condition and how it may be treated. Discuss treatment options with your caregivers to decide what care you want to receive. You always have the right to refuse treatment. The above information is an braider operator only. It is not intended as medical advice for individual conditions or treatments. Talk to your doctor, nurse or pharmacist before following any medical regimen to see if it is safe and effective for you. ?? 2016 [employer]. Information is for End User's use only and may not be sold, redistributed or otherwise used for commercial purposes. All illustrations and images included in CareNotes?? are the copyrighted property of [employer] or [employer]. andro Davalos MD - 07/19/2020 8:40 AM PDT Subjective Patient ID: José Luis Ramsay is a 55 y.o. male that had concerns including Follow- up DM/Asthma. 35-year-old man is here for follow-up on his diabetes and his recent kidney stone problems. With respect to his diabetes he is doing well with this most recent A1c on March 20 was 6.5; he is using 30 units of glargine insulin and a daily total of 20 to 25 units of Novolin with meals; he would like a referral to nutrition to discuss dietary management strategies. He is also here following up on his recent bout with a kidney stone. He apparently has surgery scheduled for July 26 to have a cystoscopy and possible stent placement and lithotripsy. Patient is pretty nervous about this. At present he does not have any symptoms associated with the stone no flank pain or blood in his urine. He has no other acute complaints or concerns presently. Past Medical History: Diagnosis Date ??? Allergic ??? Anxiety ??? Anxiety and depression ??? Asthma ??? Controlled type 2 diabetes mellitus without complication, without long-term current use of insulin ([facility]) ??? Degenerative disc disease, cervical 11/02/2018 ??? Disease of thyroid gland s/p large Goiter surgically removed ??? GERD (gastroesophageal reflux disease) ??? Headache ??? Hypertension ??? Klinefelter syndrome ??? OCD (obsessive compulsive disorder) ??? PTSD (post-traumatic stress disorder) ??? Testicular hypofunction ??? Visual impairment Past Surgical History: Procedure Laterality Date ??? LYMPH NODE BIOPSY ??? THYROIDECTOMY, PARTIAL Family History Problem Relation Age of Onset ??? Hypertension Mother ??? Hyperlipidemia Mother ??? Stroke Mother ??? Colon cancer Father ??? Asthma Father ??? Thyroid disease Father ??? Ovarian cancer Sister ??? Depression Brother ??? Alcohol abuse Neg Hx ??? COPD Neg Hx ??? Diabetes Neg Hx ??? Heart disease Neg Hx ??? Mental illness Neg Hx ??? Prostate cancer Neg Hx Social History Socioeconomic History ??? Marital status: Single Spouse name: Not on file ??? Number of children: Not on file ??? Years of education: Not on file ??? Highest education level: Not on file Occupational History ??? Not on file Social Needs ??? Financial resource strain: Not on file ??? Food insecurity Worry: Not on file Inability: Not on file ??? Transportation needs Medical: Not on file Non-medical: Not on file Tobacco Use ??? Smoking status: Never Smoker ??? Smokeless tobacco: Never Used Substance and Sexual Activity ??? Alcohol use: No ??? Drug use: No ??? Sexual activity: Not Currently control/protection: Condom Male Lifestyle ??? Physical activity Days per week: Not on file Minutes per session: Not on file ??? Stress: Not on file Relationships ??? Social connections Talks on phone: Not on file Gets together: Not on file Attends confucianism service: Not on file Active member of club or organization: Not on file Attends meetings of clubs or organizations: Not on file Relationship status: Not on file Other Topics Concern ??? 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 Where were you born? [place], [place] ?? Where did you grow up? [place], [place] ?? What is the highest level of education completed? Last school attended? When and where? 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 [employer] ?? Do you have a significant other? How long have you been with this person? No ?? Do you have children or grandchildren? How many? Where do they live? Are you in contact? No ?? 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 Patient declined to answer remainder of questions: (Do you have any hobbies?; What is a typical day like for you?; Do you follow any particular samaritan or philosophy?; What concerns you most in life (keeps you awake at night)?; Adverse Childhood Experiences (ACEs) questionnaire) ?? Allergies Allergen Reactions ??? Latex Anaphylaxis ??? Sulfamethoxazole Anaphylaxis ??? Tropical Fruit Flavor Anaphylaxis IE BANANA, KIWI, UMU, PINEAPPLE, CANTALOPE ??? Aspirin ASTHMA rash ??? Iodinated Contrast Media Other reaction(s): Hallucinations ??? Meperidine combative ??? Penicillin G Rash Current Medication List Sig acetaminophen (TYLENOL) 500 mg tablet Take 1 tablet (500 mg total) by mouth every 4 (four) hours asneeded for moderate pain albuterol HFA (PROVENTIL HFA;VENTOLIN HFA) 90 mcg/actuation inhaler Inhale 2 puffs every 4 (four) hours as needed for wheezing ascorbic acid/zinc (ZINC SULFATE-VITAMIN C ORAL) Take 2 tablets by mouth nightly atorvastatin (LIPITOR) 10 mg tablet Take 1 tablet (10 mg total) by mouth daily BD ULTRA-FINE SHORT PEN NEEDLE 31 gauge x 5/16 needle blood glucose control, normal solution check BS 4x qd blood sugar diagnostic (glucose blood) strip Check FSBS daily--One touch cholecalciferol, vitamin D3, 1,000 unit tablet,chewable Take 5,000 Units by mouth every morning EPINEPHrine (EPIPEN) 0.3 mg/0.3 mL injection syringe Inject 1 mL into the thigh fluticasone HFA (FLOVENT HFA) 220 mcg/actuation inhaler Inhale 2 puffs 2 (two) times a day Rinse mouth with water after use to reduce aftertaste and incidence of candidiasis. Do not swallow. gabapentin (NEURONTIN) 100 mg capsule Take 500 mg by mouth 2 (two) times a day HYDROcodone-acetaminophen (NORCO) 5-325 mg Take 1 tablet by mouth every 6 (six) hours as needed forpain insulin glargine (LANTUS) 100 unit/mL injection (vial) Inject 30 Units under the skin nightly insulin syringe-needle U-100 (BD Insulin Syringe Ultra-Fine) 0.3 mL 31 gauge x 5/16 syringe 1 Syringe 4 (four) times a day LORazepam (ATIVAN) 0.5 mg tablet metFORMIN (GLUCOPHAGE) 500 mg tablet Take 2 tablets (1,000 mg total) by mouth 2 (two) times a day with meals tyzjkpge-uzhp-nhg-folic acid (ifjhldslnmyy-dkvs-ufamxqbt-folic acid) 3,500-18-0.4 unit-mg-mg tablet,chewable Take 1 tablet by mouth every morning mupirocin (BACTROBAN) 2 % ointment ondansetron ODT (ZOFRAN-ODT) 4 mg disintegrating tablet pantoprazole (PROTONIX) 40 mg EC tablet Take 40 mg by mouth once daily as needed propranoloL (INDERAL) 20 mg tablet Take 1 tablet (20 mg total) by mouth 2 (two) times a day as needed (for High Blood Pressure) REGULAR INSULIN (NovoLIN R Regular U-100 Insuln) 100 unit/mL injection (VIAL) Inject 20 Units underthe skin 2 (two) times a day before meals INJECT with meals once daily PER SLIDING SCALE(before lunch) tamsulosin (FLOMAX) 0.4 mg capsule Take 1 capsule (0.4 mg total) by mouth daily Review of Systems Constitutional: Negative for appetite change, chills, fatigue, fever and unexpected weight change. HENT: Negative for congestion, dental problem, ear discharge, ear pain, hearing loss, rhinorrhea, sore throat and trouble swallowing. Eyes: Negative for pain, discharge, itching and visual disturbance. Respiratory: Negative for cough, choking, chest tightness, shortness of breath and wheezing. Cardiovascular: Negative for chest pain and palpitations. Gastrointestinal: Negative for abdominal pain, anal bleeding, blood in stool, constipation, diarrhea, nausea and vomiting. Endocrine: Negative for cold intolerance, heat intolerance, polydipsia and polyphagia. Genitourinary: Negative for decreased urine volume, discharge, dysuria, frequency, hematuria (not currently - see HPI), penile pain (not currently - see HPI) and urgency. Musculoskeletal: Negative for back pain, joint swelling, myalgias and neck pain. Skin: Negative for rash and wound. No Itching Allergic/Immunologic: Negative for environmental allergies and food allergies. Neurological: Negative for dizziness, weakness and headaches. Hematological: Does not bruise/bleed easily. Psychiatric/Behavioral: Negative for dysphoric mood and sleep disturbance. The patient is not nervous/anxious. Objective BP 118/74 Pulse 85 Wt 98 kg BMI 30.13 kg/m?? Physical Exam Vitals signs reviewed. Constitutional: General: He is not in acute distress. Appearance: Normal appearance. He is well-developed. He is not ill-appearing or diaphoretic. HENT: Head: Normocephalic and atraumatic. Neurological: Mental Status: He is alert and oriented to person, place, and time. Psychiatric: Attention and Perception: Attention normal. Mood and Affect: Mood normal. Speech: Speech normal. Behavior: Behavior normal. Behavior is cooperative. Thought Content: Thought content normal. Judgment: Judgment normal. PHQ-2 Depression screening score is Negative Recent Results (from the past 672 hour(s)) POCT UA with Microscopic Collection Time: 06/25/20 11:44 AM Result Value Ref Range Blood/Hemoglobin, UA Negative Negative - Trace Color, UA Yellow Yellow Clarity, UA Clear Clear Glucose, UA Negative Negative Bilirubin, UA Negative Negative Ketones, UA Negative Negative Specific [place], UA 1.015 1.001 - 1.035 pH, UA 5.0 5 - 9 Protein, UA Trace Negative Urobilinogen, UA 0.2 (Normal) <1.0 Nitrite, UA POC Negative Negative Leukocytes, UA Negative Negative RBC, UA 0-2 0 - 2 WBC, UA POCT 0-2 0 - 2 Epithelial Cells, Other None Seen None Bacteria, UA None Seen None Crystals, UA None Seen None Culture, urine Collection Time: 07/16/20 9:53 AM Specimen: Urine, Clean Catch Result Value Ref Range Urine Culture No growth (<1,000 organisms/mL) Patient Active Problem List Diagnosis ??? OCD (obsessive compulsive disorder) ??? Klinefelter syndrome ??? Testicular hypofunction ??? Controlled type 2 diabetes mellitus without complication, without long-term current use of insulin (CMS/HCC) ??? Anxiety and depression ??? Left arm pain ??? PTSD (post-traumatic stress disorder) ??? Hypertension ??? Left foot pain ??? Routine physical examination ??? Dysuria ??? Other problems related to employment ??? Travel advice encounter ??? Bronchospasm with bronchitis, acute ??? Urinary urgency ??? Pruritus of skin ??? Near syncope ??? Weakness ??? Anxiety ??? Hyperlipidemia ??? Electrical shock sensation ??? GERD (gastroesophageal reflux disease) ??? Degenerative disc disease, cervical ??? Onychomycosis ??? Functional neurological symptom disorder with mixed symptoms ??? Uncontrolled type 2 diabetes mellitus without complication, with long-term current use of insulin ??? Recent head trauma ??? Asthma ??? Left ureteral calculus Assessment/Plan Diagnoses and all orders for this visit: Kidney stone Type 2 diabetes mellitus without complication, with long-term current use of insulin ([facility]) Assessment/Plan Comments: Kidney stone - we reviewed his recent imaging studies occluding the pictures themselves. He had many questions which we discussed. He was encouraged to follow-up with urology as instructed and with me as needed. Diabetes well controlled - this is well controlled with the last A1c at 6.5 on March 20. We will check a set of labs at the earliest convenience (labs are already ordered) and will refer to nutrition for Dietary counseling. Continue current medical management. Over 50% of the time that was spent with the patient was in coordination of care and counseling. Total visit time 25 minutes. Electronically signed by Sandro Davalos MD 07/19/2020 6:13 PM documented in this encounter Plan of Treatment Upcoming Encounters Date Type Specialty Care Team Description 06/16/2021 Office Visit Family Medicine Sandro Davalos MD [address] [place], [place] [id number] (Wo rk) 06/27/2021 Office Visit Urology Sandra Arevalo, PAJustinaC [address], [place] [phone] (Wo rk) 07/08/2021 Procedure visit Otolaryngology Lynnette Grady AuD [address] [place], [place] [phone] (Wo rk) 07/09/2021 Office Visit Otolaryngology Johan Arreola MD [address] [place] [address] (Wo rk) 08/01/2021 Office Visit Dermatology Olya Sawant, [facility] [address] [place], [place] [address] (Wo rk) Scheduled Referrals Name Type Priority Associated Diagnoses Order S chedule XTRNL Referral to Outpatient Referral Routine Type 2 diabetes Ordered: Nutrition Services mellitus without 07/22 complication, with long-term current use of insulin ([facility]) documented as of this encounter Visit Diagnoses Diagnosis Kidney stone - Primary Calculus of kidney Type 2 diabetes mellitus without complic ation, with long-term current use of insulin ([facility]) documented in this encounter Insurance Payer Benefit Plan / Subscriber ID Effective Dates Phone Addre ss Type Group [employer] ANABELLE [id number] 2021-Present [address] [address] [place] [address] documented as of this encounter Advance Directives Documents on File Type Date Recorded Patient Payment Specialist Explanati on Advance Directives and Living 06/14/2019 4:14 PM POLST Form Will Latest Code Status on File Code Status Date Activated Date Inactivated Comments Full Code 09/25/2018 4:43 PM 09/30/2018 6:34 PM 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
== END 2021-05-19 18:25 | disposition home or self-care (01) ==
PROVIDERS: PCP Family Medicine; Referring Provider Orthopaedic Surgery; Visit Provider Orthopaedic Surgery
PROC: (CPT 29870; principal; 2021-05-19 14:45)
DX: S83.242A Other tear of medial meniscus, current injury, left knee, initial encounter (principal); M17.12 Unilateral primary osteoarthritis, left knee; M67.52 Plica syndrome, left knee; E11.9 Type 2 diabetes mellitus without complications; Z79.4 Long term (current) use of insulin; M25.762 Osteophyte, left knee; M65.9 Synovitis and tenosynovitis, unspecified; F43.10 Post-traumatic stress disorder, unspecified; F42.9 Obsessive-compulsive disorder, unspecified; J45.20 Mild intermittent asthma, uncomplicated
CPT/HCPCS: 29881; 29875; 36415; 82962; 93005; J0690; J2060; J2250; J2270; J2405; J2704; J3010; J7613

== ENCOUNTER → 2021-06-26 | Outpatient (CLI) | payer OTHER, SELFPAY | PROVIDERS: PCP Family Medicine; Referring Provider Internal Medicine; Visit Provider Internal Medicine | DX: Z23 Encounter for immunization (principal) | CPT/HCPCS: 90471; 90686 ==

== ENCOUNTER 2021-06-28 09:30 | Emergency (ER) | payer OTHER, SELFPAY ==
--- NOTE | 2021-06-28 09:38 | ED.GENADULT ---
HPI - General Adult General Chief complaint: Blood/Body fluid exposure Stated complaint: NEEDLE STICK Time Seen by Provider: 06/28/21 09:35 Source: patient Mode of arrival: Ambulatory Limitations: no limitations History of Present Illness HPI narrative: This is a 56-year-old male who had a needlestick exposure while at work. Patient was drawing blood from the source, they were unsuccessful, needle was bloody and the patient moved and they had described to superficial puncture to the index finger on the left hand. It was through a glove. They did not see obvious bleeding but used alcohol wipe and could feel burning. Patient himself is up-to-date on hepatitis vaccination and tetanus. Source patient has been identified to the coordinator to have labs ordered and drawn. At this time patient defers starting any prophylaxis and will await source patient results. Patient does have a history of diabetes. Patient does have some allergies to medications. PCP is Sandro Davalos. Related Data Home Medications Medication Instructions Recorded Confirmed albuterol sulfate 90 mcg/actuation 2 puff INHALATION Q6H PRN 08/03/18 05/14/21 aerosol inhaler cholecalciferol (vitamin D3) 125 5,000 unit PO DAILY 08/03/18 05/19/21 mcg (5,000 unit) capsule metformin 1,000 mg tablet 1,000 mg PO BID 08/03/18 05/19/21 pantoprazole 40 mg tablet,delayed 40 mg PO DAILY PRN 08/03/18 05/19/21 release gabapentin 100 mg capsule 500 mg PO BID cap 02/14/20 05/19/21 insulin glargine 100 unit/mL (3 20 unit SUBCUT QAM 02/14/20 05/19/21 mL) subcutaneous pen (Lantus Solostar U-100 Insulin) insulin regular human 100 unit/mL 10 - 15 unit SUBCUT SEEINSTR ml 02/14/20 05/19/21 injection solution (Novolin R Regular U-100 Insulin) famotidine 40 mg tablet 40 mg PO DAILY 11/04/20 05/19/21 tamsulosin 0.4 mg capsule (Flomax) 0.4 mg PO DAILY 05/14/21 05/19/21 Previous Rx's Medication Instructions Recorded hydrocodone 5 mg-acetaminophen 325 1 tab PO Q4HR PRN #30 tab 05/19/21 mg tablet Allergies Allergy/AdvReac Type Severity Reaction Status Date / Time banana Allergy Severe Anaphylaxis Verified 06/28/21 09:36 Latex, Natural Rubber Allergy Severe Anaphylaxis Verified 06/28/21 09:36 aspirin AdvReac Mild rash Verified 06/28/21 09:36 Penicillins AdvReac Mild rash Verified 06/28/21 09:36 Sulfa (Sulfonamide AdvReac Mild rash Verified 06/28/21 09:36 Antibiotics) contrast Allergy Severe Stroke Uncoded 06/28/21 09:36 Symptoms tropical fruits AdvReac Anaphylaxis-Includes Uncoded 06/28/21 09:36 Bananas Review of Systems Review of Systems ROS Unobtainable: All systems reviewed & are unremarkable except as noted in HPI and below Patient History Medical History Anxiety Asthma Complex tear of medial meniscus of right knee as current injury Depression Diabetes Esophageal abnormality Functional neurological symptom disorder with weakness or paralysis Hiatal hernia History of Klinefelter syndrome History of renal stone HLD (hyperlipidemia) Left inguinal hernia Localized osteoarthritis of knees, bilateral OCD (obsessive compulsive disorder) Osteoarthritis Peripheral neuropathy PTSD (post-traumatic stress disorder) Trauma in childhood Surgical History History of surgery Hx of arthroscopy of right knee (11/04/20) Social History household members: other Smoking Status: Never smoker alcohol intake: never eating out: rarely or never Type(s) of exercise: walking Smoking Status: Never smoker alcohol intake frequency: 0-2 drinks per day Substance Use Type: does not use Exam Narrative Exam Narrative: GENERAL: Alert and oriented x three, male in mild distress. HEENT: Head normocephalic, atraumatic, EOMI, pupils reactive, face symmetric, moist mucous membranes NECK: Full range of motion. EXTREMITIES: Normal range of motion, no clubbing or edema. Neurovascularly intact. Very faint, possible puncture of the distal tip of the 2nd finger on the left hand. No active bleeding or scabbing. NEUROLOGICAL: Cranial nerves II through XII grossly intact. Moving all extremities SKIN: Warm, dry, no petechiae, no rashes or lesions other than noted above. Initial Vital Signs Initial Vital Signs: Vital Signs Temperature 98.4 F 06/28/21 09:44 Pulse Rate 94 H 06/28/21 09:44 Respiratory Rate 18 06/28/21 09:44 Blood Pressure 181/86 H 06/28/21 09:44 Pulse Oximetry 93 06/28/21 09:44 Course Vital Signs Vital signs: Vital Signs - 8 hr 06/28/21 09:44 Temperature 98.4 F Pulse Rate 94 H Respiratory Rate 18 Blood Pressure 181/86 H Pulse Oximetry 93 Medical Decision Making Lab Data Labs: Lab Results 06/28/21 06/28/21 06/28/21 Range/Units 09:45 09:45 09:45 ALT 18 (<50) IU/L Hep Bs Antigen Negative (NEGATIVE) s/c Hep Bs Antibody Reactive (.) Hepatitis C Antibody Negative (NEGATIVE) s/c HIV 1&2 Ab/P24 Ag 4thGn Negative (NEGATIVE) MDM Narrative Medical decision making narrative: Patient lab tests are pending. Patient defers waiting for results. They have easy access to labs and will contact me for any questions. Discharge Plan Departure Patient Disposition: Home Clinical Impression: Employee exposure to blood Instructions: DI for Accidental Exposure to Body Fluids Activity Restrictions/Additional Instructions: Your testing is pending. Let me know if you have any questions about results. If all source testing is negative is typically recommended that you have follow up testing a regularly scheduled intervals. If the source patient is positive you should return to receive PEP. Testing recommended at 6 weeks, 3 months and 6 months for HIV in 4-6 months for hepatitis B/C. Wound Care: Keep wound(s) clean and dry. Wash daily with soap and water only. Do not use over the counter products (alcohol or peroxide)on the wounds unless instructed by a physician. If wound condition worsens (increased/expanding redness, warmth, discharge, developing fluid blisters, or worsening pain), either contact your doctor for an urgent re-assessment , or return to the Emergency Department. Prescriptions: No Action gabapentin 100 mg capsule 500 mg PO BID RF: 0 Lantus Solostar U-100 Insulin 100 unit/mL (3 mL) insulin pen 20 unit SUBCUT QAM RF: 0 Novolin R Regular U-100 Insuln 100 unit/mL solution 10 - 15 unit SUBCUT SEEINSTR RF: 0 pantoprazole 40 mg tablet,delayed release (DR/EC) 40 mg PO DAILY PRN (Reason: GI Upset) RF: 0 metformin 1,000 mg tablet 1,000 mg PO BID RF: 0 albuterol sulfate 90 mcg/actuation HFA aerosol inhaler 2 puff INHALATION Q6H PRN (Reason: Congestion) RF: 0 cholecalciferol (vitamin D3) 5,000 unit capsule 5,000 unit PO DAILY RF: 0 famotidine 40 mg Tablet 40 mg PO DAILY RF: 0 tamsulosin [Flomax] 0.4 mg Capsule 0.4 mg PO DAILY RF: 0 hydrocodone-acetaminophen 5-325 mg Tablet 1 tab PO Q4HR PRN (Reason: Pain, Moderate (4-6)) Qty: 30 RF: 0 Referrals: Sandro Davalos MD [Primary Care Provider] -
[2021-06-28 09:44] VITALS: BP 181/86; PULSE 94; RESP 18; TEMP 36.9; O2SAT 93
[2021-06-28 10:53] LABS: Alanine Aminotransferase 18 IU/L (<50)
[2021-06-28 14:50] LABS: Hepatitis B Surface Antigen NEGATIVE s/c (NEGATIVE)
[2021-06-28 15:09] LABS: HIV 1 & 2 Ab/Ag 4th Gen Combo NEGATIVE (NEGATIVE); Hep C Virus Ab w/Reflex Quant NEGATIVE s/c (NEGATIVE)
[2021-06-30 11:23] LABS: Hepatitis B Surf Ab Qualitativ Reactive (.)
== END 2021-06-28 09:59 | disposition home or self-care (01) ==
PROVIDERS: Emergency Provider Emergency Medicine; PCP Family Medicine
DX: Z77.21 Contact with and (suspected) exposure to potentially hazardous body fluids (principal); W26.8XXA Contact with other sharp object(s), not elsewhere classified, initial encounter; Y99.0 Civilian activity done for income or pay
CPT/HCPCS: 36415; 99283

== ENCOUNTER 2021-08-06 16:10 | Emergency (ER) | payer OTHER, SELFPAY ==
[2021-08-06 16:27] VITALS: BP 184/87; PULSE 81; RESP 14; TEMP 35.7; O2SAT 100; BMI 30.5
--- NOTE | 2021-08-06 16:34 | DI.US.S_ITS ---
PROCEDURE: US PERIPH VENOUS LOW EXTREM LT INDICATIONS: pain behind knee TECHNIQUE: Real-time imaging, as well as color and pulse Doppler interrogation, were performed of the lower extremity deep veins from the inguinal ligament to the popliteal fossa. COMPARISON: None. FINDINGS: The common femoral, femoral and popliteal veins are normally compressible, and free of intraluminal thrombus. Color and pulse Doppler demonstrate normal phasic intraluminal flow. There is normal augmentation response to distal compression maneuver. IMPRESSION: Negative for deep venous thrombosis. Dictated by: Sanchez Rosales M.D. on 08/06/2021 at 16:05 Approved by: Sanchez Rosales M.D. on 08/06/2021 at 16:06
--- NOTE | 2021-08-06 19:12 | ED.EXTPRO ---
HPI - Extremity Problem General Chief complaint: Extremity Problem,Nontraumatic Stated complaint: SENT BY [facility], possible DVT Time Seen by Provider: 08/06/21 19:02 Source: patient Mode of arrival: Ambulatory Limitations: no limitations History of Present Illness HPI Narrative: 56-year-old male nonsmoker presents with the chief complaint of pain and redness on the posterior aspect of his left knee for the past few days. He denies any injury. A left knee surgery a few months ago and was seen in follow-up with his orthopedist yesterday grew drained a small amount of fluid. He has had no systemic findings such as fever chills nor nausea or vomiting. He states his pain is worse when he ambulates improves with rest. Related Data Home Medications Medication Instructions Recorded Confirmed albuterol sulfate 90 mcg/actuation 2 puff INHALATION Q6H PRN 08/03/18 07/31/21 aerosol inhaler cholecalciferol (vitamin D3) 125 5,000 unit PO DAILY 08/03/18 07/31/21 mcg (5,000 unit) capsule metformin 1,000 mg tablet 1,000 mg PO BID 08/03/18 07/31/21 gabapentin 100 mg capsule 500 mg PO BID cap 02/14/20 07/31/21 insulin glargine 100 unit/mL (3 20 unit SUBCUT QAM 02/14/20 07/31/21 mL) subcutaneous pen (Lantus Solostar U-100 Insulin) insulin regular human 100 unit/mL 10 - 15 unit SUBCUT SEEINSTR ml 02/14/20 07/31/21 injection solution (Novolin R Regular U-100 Insulin) famotidine 40 mg tablet 40 mg PO DAILY 11/04/20 07/31/21 tamsulosin 0.4 mg capsule (Flomax) 0.4 mg PO DAILY 05/14/21 07/31/21 Previous Rx's Medication Instructions Recorded hydrocodone 5 mg-acetaminophen 325 1 tab PO Q4HR PRN #30 tab 05/19/21 mg tablet lorazepam 1 mg tablet 1 mg PO BID PRN #60 tab 07/03/21 hydroxyzine HCl 10 mg tablet 10 mg PO BID PRN #30 tab 07/31/21 cephalexin 500 mg capsule 500 mg PO Q6H 7 Days #28 cap 08/06/21 Allergies Allergy/AdvReac Type Severity Reaction Status Date / Time banana Allergy Severe Anaphylaxis Verified 08/06/21 16:27 Latex, Natural Rubber Allergy Severe Anaphylaxis Verified 08/06/21 16:27 aspirin AdvReac Mild rash Verified 08/06/21 16:27 Penicillins AdvReac Mild rash Verified 08/06/21 16:27 Sulfa (Sulfonamide AdvReac Mild rash Verified 08/06/21 16:27 Antibiotics) contrast Allergy Severe Stroke Uncoded 07/31/21 15:52 Symptoms tropical fruits AdvReac Anaphylaxis-Includes Uncoded 07/31/21 15:52 Bananas Review of Systems Review of Systems Narrative: GENERAL: Denies chills, fatigue, malaise, fever, sweats. HEENT: Denies sinus pain, ear pain, sore throat, difficulty swallowing, dizziness. RESPIRATORY: Denies dyspnea, cough, wheezing, hemoptysis, sputum. CARDIOVASCULAR: Denies chest pain, palpitations, orthopnea, edema, GASTROINTESTINAL: Denies nausea, vomiting, abdominal pain, diarrhea, constipation, melena. : Denies dysuria, frequency, incontinence, hematuria, urinary retention. MUSCULOSKELETAL: See HPI SKIN: See HP NEUROLOGIC: Denies weakness, headache, numbness, change in speech, confusion, seizures, incoordination. PSYCHIATRIC: No concerning psychosocial issues. 12 point review of systems is negative except for those stated above Patient History Medical History Anxiety Asthma Complex tear of medial meniscus of right knee as current injury Depression Diabetes Esophageal abnormality Functional neurological symptom disorder with weakness or paralysis Hiatal hernia History of Klinefelter syndrome History of renal stone HLD (hyperlipidemia) Left inguinal hernia Localized osteoarthritis of knees, bilateral OCD (obsessive compulsive disorder) Osteoarthritis Peripheral neuropathy PTSD (post-traumatic stress disorder) Trauma in childhood Surgical History History of surgery Hx of arthroscopy of right knee (11/04/20) Social History household members: other Smoking Status: Never smoker alcohol intake: never eating out: rarely or never Type(s) of exercise: walking Smoking Status: Never smoker alcohol intake frequency: holidays/special occasions only Substance Use Type: does not use Exam Narrative Exam Narrative: GEN: AOx3 and in mild distress EYES: Pupils are equal, round, and reactive to light and accommodation. Extraoccular muscles are intact bilaterally. There is no subconjunctival hemorrhage or exudate. CHEST: Lungs are clear to auscultation bilaterally and free of wheezes, rales, or rhonchi. Heart rate is regular rhythm, there are no murmurs, clicks, rubs, or gallops. There is no chest wall tenderness. ABD: Abdomen is soft and nontender. There is no guarding or rebound. Bowel sounds are normal in all 4 quadrants. There is no mass or organomegaly. EXT: Full painless ROM of all extremities with no loss of sensation or strength. SKIN: Well-circumscribed patch of erythema warmth on posterior of left knee measuring about 6 x 8 cm, no induration or fluctuance Warm, pink, and dry. No erythema or rash Initial Vital Signs Initial Vital Signs: Vital Signs Temperature 96.3 F L 08/06/21 16:27 Pulse Rate 81 08/06/21 16:27 Respiratory Rate 14 08/06/21 16:27 Blood Pressure 184/87 H 08/06/21 16:27 Pulse Oximetry 100 08/06/21 16:27 Course Orders Ordered: ED Orders 08/06/21 16:34 US periph venous low extrem lt Stat Vital Signs Vital signs: Vital Signs - 8 hr 08/06/21 19:29 Pulse Rate 78 Respiratory Rate 16 Blood Pressure 137/77 Pulse Oximetry 99 MDM - Extremity (Nontraumatic) Imaging Data US - DVT: Radiologist's Impression: Launch?[place] [address] Ultrasound Report Signed Patient: José Luis Ramsay MR#: [id number] : 1965 Acct:[id number] Age/Sex: 56 / M Date of Service: 08/06/21 Loc: ED Accession Number: [id number] ?? Procedure: US periph venous low extrem lt Ordering Provider: Ramon Zhou D.O. PROCEDURE:? US PERIPH VENOUS LOW EXTREM LT ? INDICATIONS:? pain behind knee ? TECHNIQUE:? Real-time imaging, as well as color and pulse Doppler interrogation, were performed of the lower extremity deep veins from the inguinal ligament to the popliteal fossa.? ? COMPARISON:? None. ? FINDINGS:? The common femoral, femoral and popliteal veins are normally compressible, and free of intraluminal thrombus.? Color and pulse Doppler demonstrate normal phasic intraluminal flow.? There is normal augmentation response to distal compression maneuver. ? ? IMPRESSION:? ? Negative for deep venous thrombosis. ? ? Dictated by: Sanchze Rosales M.D. on 08/06/2021 at 16:05 ? ? Approved by: Sanchez Rosales M.D. on 08/06/2021 at 16:06 ? Discharge Plan Departure Patient Disposition: Home Clinical Impression: Cellulitis Instructions: DI for Cellulitis -- Adult Activity Restrictions/Additional Instructions: *You have been diagnosed with [left lower leg cellulitis. Physical exam and ultrasound are negative for DVT. *What to do: *Please continue to take your regular medications as directed. [x ] New medication prescriptions sent to your pharmacy: [ [facility]] [ ] New medication written as a paper prescription [ ] No new medications given *Please follow up with your primary care provider in 2-3 days, call for an appointment. Let them know you were seen in the Emergency Department and that we ask that you be seen in follow up. We will electronically transmit a record of today's note if your PCP is in our system *If you do not have a primary care provider please contact the [facility] Resource line at [phone]. They will ask some questions about your medical history and help get you set up with a doctor in the community. *Return to Emergency Department if you should have any new, worsening or concerning symptoms, such as [fever greater than 101 F, shaking chills, worsening pain, persistent vomiting or other bothersome symptoms] Prescriptions: New cephalexin 500 mg capsule 500 mg PO Q6H 7 Days Qty: 28 0RF No Action gabapentin 100 mg capsule 500 mg PO BID 0RF Label Comments: Initiating taper per Neurology Lantus Solostar U-100 Insulin 100 unit/mL (3 mL) insulin pen 20 unit SUBCUT QAM 0RF Label Comments: took 12 untis this morning Novolin R Regular U-100 Insuln 100 unit/mL solution 10 - 15 unit SUBCUT SEEINSTR 0RF Label Comments: Takes with lunch and dinner lorazepam 1 mg tablet 1 mg PO BID PRN (Reason: anxiety) Qty: 60 0RF hydroxyzine HCl 10 mg tablet 10 mg PO BID PRN (Reason: anxiety) Qty: 30 0RF metformin 1,000 mg tablet 1,000 mg PO BID 0RF albuterol sulfate 90 mcg/actuation HFA aerosol inhaler 2 puff INHALATION Q6H PRN (Reason: Congestion) 0RF cholecalciferol (vitamin D3) 5,000 unit capsule 5,000 unit PO DAILY 0RF famotidine 40 mg Tablet 40 mg PO DAILY 0RF tamsulosin [Flomax] 0.4 mg Capsule 0.4 mg PO DAILY 0RF hydrocodone-acetaminophen 5-325 mg Tablet 1 tab PO Q4HR PRN (Reason: Pain, Moderate (4-6)) Qty: 30 0RF Referrals: Sandro Davalos MD [Primary Care Provider] -
[2021-08-06 19:29] VITALS: BP 137/77; PULSE 78; RESP 16; O2SAT 99
== END 2021-08-06 19:38 | disposition home or self-care (01) ==
PROVIDERS: Emergency Provider Emergency Medicine; PCP Family Medicine
DX: L03.116 Cellulitis of left lower limb (principal)
CPT/HCPCS: 93971; 99281; 99283

== ENCOUNTER → 2021-08-24 10:51 | Outpatient (ROUT) | payer OTHER, SELFPAY ==
[2021-08-24 11:07] LABS: Appearance Urine UA CLEAR; Bilirubin Urine UA NEGATIVE (NEGATIVE); Color Urine UA YELLOW; Glucose Urine UA NEGATIVE (Negative); Ketones Urine UA NEGATIVE (NEGATIVE); Leukocyte Esterase Urine UA NEGATIVE (NEGATIVE); Nitrite Urine UA NEGATIVE (Negative); Occult Blood Urine UA NEGATIVE (Negative); Protein Urine UA NEGATIVE (Negative); Specific Gravity Urine UA >=1.030 (1.000-1.035); Urobilinogen Urine UA 0.2 E.U./dL (0.2)
[2021-08-24 11:14] LABS: Bacteria Urine Occasional (0-1); Culture Indicated Urine Cult Not Indicated; RBC Urine None Seen (0-5/HPF); Squamous Epithelial Cell Urine 0-1 /HPF (0-5/HPF); WBC Urine 1-5/HPF (0-5/HPF)
[2021-08-24 12:11] LABS: Creatinine Urine Random 187.1 mg/dL
[2021-08-24 12:15] LABS: Microalbumi Creatinin Ratio Ur 7.4 ug/mg CR (<30); Microalbumin Urine Random 1.4 mg/dL (0-1.6)
== END ==
PROVIDERS: PCP Family Medicine; Visit Provider Family Medicine
DX: Z79.4 Long term (current) use of insulin (principal); E11.65 Type 2 diabetes mellitus with hyperglycemia
CPT/HCPCS: 81001; 82043; 82570

== ENCOUNTER → 2021-08-25 12:58 | Outpatient (ROUT) | payer OTHER, SELFPAY ==
[2021-08-25 13:23] LABS: Add Manual Diff / Slide Review NO; Basophils Absolute Auto 100 /uL (0-100); Basophils Percent Auto 0.8 % (0-2); Eosinophils Absolute Auto 400 /uL (0-450); Eosinophils Percent Auto 6.1 % (2-4); Hemoglobin 12.6 g/dL (13.5-17.5); Lymphocytes Absolute Auto 1600 /uL (1100-4500); Lymphocytes Percent Auto 22.3 % (25-40); Mean Corpuscular HGB Conc 34.2 % (30-36); Mean Corpuscular Hemoglobin 28.7 PG (26-34); Monocytes Absolute Auto 400 /uL (0-900); Monocytes Percent Auto 5.6 % (3-14); Neutrophils Absolute Auto 4700 /uL (1500-7000); Neutrophils Percent Auto 65.2 % (50-75); Platelet Count 231 X10^3/uL (150-400); Red Cell Distribution Width 14.4 % (11.6-14.8); White Blood Cell Count 7.2 X10^3/uL (4.5-11.0)
[2021-08-25 13:51] LABS: Alanine Aminotransferase 18 IU/L (<50); Albumin 4.8 g/dL (3.5-5.0); Albumin Globulin Ratio 1.7 (1.0-2.8); Alkaline Phosphatase 97 U/L (38-126); Aspartate Aminotransferase 30 IU/L (17-59); BUN Creatinine Ratio 29.2 (6-22); Bilirubin Total 0.9 mg/dL (0.2-1.3); Blood Urea Nitrogen 19 mg/dL (9-20); Carbon Dioxide 26 mmol/L (22-32); Chloride 103 mmol/L (98-107); Cholesterol 171 mg/dL (140-199); Estimated Glomerular Filt Rate > 60.0 mL/min (>60); Globulin 2.9 g/dL (1.7-4.1); Glucose 79 mg/dL (70-100); HDL Cholesterol 47 mg/dL (40-60); HEMOLYSIS < 15 (0-50); Hemoglobin A1C% w Est Avg Glu 5.9 % (4.0-6.0); LDL Cholesterol Calculated 107 mg/dL (<100); Potassium 4.3 mmol/L (3.4-5.1); Sodium 141 mmol/L (137-145); Total Protein 7.7 g/dL (6.3-8.2); Triglycerides 85 mg/dL (35-150)
== END ==
PROVIDERS: PCP Family Medicine; Visit Provider Family Medicine
DX: E11.65 Type 2 diabetes mellitus with hyperglycemia (principal); Z79.4 Long term (current) use of insulin
CPT/HCPCS: 36415; 80053; 80061; 83036; 85025

== ENCOUNTER → 2021-10-04 10:17 | Outpatient (ROUT) | payer OTHER, SELFPAY ==
[2021-10-04 10:41] LABS: Add Manual Diff / Slide Review NO; Basophils Absolute Auto 100 /uL (0-100); Basophils Percent Auto 0.7 % (0-2); Eosinophils Absolute Auto 600 /uL (0-450); Eosinophils Percent Auto 7.2 % (2-4); Hematocrit 39.2 % (41-53); Hemoglobin 13.5 g/dL (13.5-17.5); Lymphocytes Absolute Auto 2200 /uL (1100-4500); Lymphocytes Percent Auto 26.8 % (25-40); Mean Corpuscular HGB Conc 34.5 % (30-36); Mean Corpuscular Hemoglobin 28.5 PG (26-34); Mean Corpuscular Volume 82.5 fL (80-100); Monocytes Absolute Auto 600 /uL (0-900); Monocytes Percent Auto 6.8 % (3-14); Neutrophils Absolute Auto 4800 /uL (1500-7000); Neutrophils Percent Auto 58.5 % (50-75); Platelet Count 208 X10^3/uL (150-400); Red Blood Cell Count 4.75 X10^6/uL (4.5-5.9); Red Cell Distribution Width 14.5 % (11.6-14.8); White Blood Cell Count 8.2 X10^3/uL (4.5-11.0)
[2021-10-04 11:05] LABS: Appearance Urine UA CLEAR; Bilirubin Urine UA NEGATIVE (NEGATIVE); Color Urine UA YELLOW; Glucose Urine UA NEGATIVE (Negative); Ketones Urine UA NEGATIVE (NEGATIVE); Leukocyte Esterase Urine UA NEGATIVE (NEGATIVE); Nitrite Urine UA NEGATIVE (Negative); Occult Blood Urine UA NEGATIVE (Negative); Protein Urine UA NEGATIVE (Negative); Urobilinogen Urine UA 0.2 E.U./dL (0.2)
[2021-10-04 11:22] LABS: Bacteria Urine None Seen; RBC Urine None Seen (0-5/HPF); WBC Urine None Seen (0-5/HPF)
[2021-10-04 13:49] LABS: Culture Indicated Urine Cult Not Indicated
== END ==
PROVIDERS: PCP Family Medicine; Visit Provider Family Medicine
DX: E11.9 Type 2 diabetes mellitus without complications (principal); Z79.4 Long term (current) use of insulin
CPT/HCPCS: 36415; 81001; 85025

== ENCOUNTER 2021-10-12 15:26 | Emergency (ER) | payer OTHER, SELFPAY ==
[2021-10-12 15:33] VITALS: BP 170/75; PULSE 90; RESP 18; TEMP 36.7; O2SAT 100
--- NOTE | 2021-10-12 15:33 | DI.RAD.S_ITS ---
PROCEDURE: XR CHEST 1V INDICATIONS: chest pain TECHNIQUE: One view of the chest was acquired. COMPARISON: [facility], , CHEST 2VW, 03/08/2014, 12:10. FINDINGS: Surgical changes and devices: None. Lungs and pleura: Lungs are clear. No pleural effusions or pneumothorax. Mediastinum: Mediastinal contours appear unchanged. Heart size is normal. Bones and chest wall: No suspicious bony lesions. Overlying soft tissues appear unremarkable. IMPRESSION: No acute cardiopulmonary abnormality. Dictated by: Molina Peralta M.D. on 10/12/2021 at 16:05 Approved by: Molina Peralta M.D. on 10/12/2021 at 16:07
[2021-10-12 15:44] LABS: Add Manual Diff / Slide Review NO; Basophils Absolute Auto 100 /uL (0-100); Basophils Percent Auto 0.7 % (0-2); Eosinophils Absolute Auto 500 /uL (0-450); Eosinophils Percent Auto 6.9 % (2-4); Hematocrit 38.4 % (41-53); Hemoglobin 13.4 g/dL (13.5-17.5); Lymphocytes Absolute Auto 2000 /uL (1100-4500); Lymphocytes Percent Auto 25.8 % (25-40); Mean Corpuscular HGB Conc 34.8 % (30-36); Mean Corpuscular Hemoglobin 28.8 PG (26-34); Mean Corpuscular Volume 82.7 fL (80-100); Monocytes Absolute Auto 600 /uL (0-900); Monocytes Percent Auto 7.8 % (3-14); Neutrophils Absolute Auto 4600 /uL (1500-7000); Neutrophils Percent Auto 58.8 % (50-75); Platelet Count 209 X10^3/uL (150-400); Red Blood Cell Count 4.64 X10^6/uL (4.5-5.9); Red Cell Distribution Width 14.5 % (11.6-14.8); White Blood Cell Count 7.9 X10^3/uL (4.5-11.0)
--- NOTE | 2021-10-12 15:48 | DI.RAD.S_ITS ---
PROCEDURE: XR SHOULDER LT MIN 2V INDICATIONS: shoulder pain TECHNIQUE: 3 views of the shoulder were acquired. COMPARISON: None. FINDINGS: Bones: No fractures or dislocations. No suspicious bony lesions. Visualized ribs appear intact. Soft tissues: No suspicious soft tissue calcifications. The visualized lung demonstrates an unremarkable appearance. IMPRESSION: Normal plain films. If it would be helpful for clinical management decision making, please consider a dedicated, scheduled shoulder MRI for further evaluation (assuming that there is no contraindication). Dictated by: Sanchez Rosales M.D. on 10/12/2021 at 15:47 Approved by: Sanchez Rosales M.D. on 10/12/2021 at 15:47
--- NOTE | 2021-10-12 15:48 | DI.RAD.S_ITS ---
PROCEDURE: XR CERVICAL SPINE 2V OR 3V INDICATIONS: left shoulder pain TECHNIQUE: 3 view(s) of the cervical spine were acquired. COMPARISON: [facility], MR, MR CERVICAL SPINE WITHOUT CONTRAST, 09/28/2018, 21:39. [facility], CT, CT NECK SOFT TISSUE W CON, 07/13/2015, 8:34. [facility], CR, XR CHEST 1V, 10/12/2021, 15:47. [facility], CR, XR SHOULDER LT MIN 2V, 10/12/2021, 15:43. FINDINGS: Bones: No fractures or dislocations to the C7 level. The lateral masses of C1 appear intact on the odontoid view. No suspicious bony lesions. There is [id number] disc space narrowing seen at the C5-C6 level, with at least moderate disc space narrowing at C6-C7. Endplate irregularity and sclerosis are seen, which are worst at C6-C7. There is overall straightening of the normal cervical lordosis. Soft tissues: No prevertebral soft tissue swelling. The visualized lung apices are unremarkable. IMPRESSION: Cervical spine degenerative changes are seen, which are worst inferiorly. If it would be helpful for clinical management decision making, please consider a dedicated cervical spine MRI for further evaluation (assuming that there is no contraindication). Dictated by: Sanchez Rosales M.D. on 10/12/2021 at 15:48 Approved by: Sanchez Rosales M.D. on 10/12/2021 at 15:49
--- NOTE | 2021-10-12 15:49 | ED.CHESTPAIN ---
HPI - Chest Pain <Collins Logan PA-C - Last Filed: 10/12/21 17:10> General Chief Complaint: Chest Pain Stated Complaint: chest pain today Time Seen by Provider: 10/12/21 15:40 Source: patient Mode of arrival: Ambulatory History of Present Illness HPI narrative: Patient is a 56-year-old male who presents to the ED complaining of left shoulder arm pain. He states that the pain started yesterday or while driving it did cause some associated left-sided chest pain. He has a history of palpitations with associated lightheadedness of which she reports having 2 or 3 episodes of that over the last 24 hours. He has been evaluated by director regulatory agency had a Holter monitor which did not show any arrhythmias. The pain became worse today and as result he presents to the ED for evaluation. He describes the pain to be sharp in nature pain increases with abduction and rotation of the left shoulder pain radiates into the armpit. He denies any recent trauma or fall no prior cervical or shoulder arthropathies. Patient denies any shortness of breath nausea vomiting diarrhea fever cough. Has a history of hyperlipidemia which takes orbit atorvastatin for. He routinely sees his PCP for preventative care and follow ups he also monitors his blood pressure and reports his findings to his PCP regularly. Related Data Home Medications Medication Instructions Recorded Confirmed albuterol sulfate 90 mcg/actuation 2 puff INHALATION Q6H PRN 08/03/18 08/28/21 aerosol inhaler cholecalciferol (vitamin D3) 125 5,000 unit PO DAILY 08/03/18 08/28/21 mcg (5,000 unit) capsule metformin 1,000 mg tablet 1,000 mg PO BID 08/03/18 08/28/21 gabapentin 100 mg capsule 500 mg PO BID cap 02/14/20 08/28/21 insulin glargine 100 unit/mL (3 20 unit SUBCUT QAM 02/14/20 08/28/21 mL) subcutaneous pen (Lantus Solostar U-100 Insulin) insulin regular human 100 unit/mL 10 - 15 unit SUBCUT SEEINSTR ml 02/14/20 08/28/21 injection solution (Novolin R Regular U-100 Insulin) famotidine 40 mg tablet 40 mg PO DAILY 11/04/20 08/28/21 tamsulosin 0.4 mg capsule (Flomax) 0.4 mg PO DAILY 05/14/21 08/28/21 Previous Rx's Medication Instructions Recorded lorazepam 1 mg tablet 1 mg PO BID PRN #60 tab 07/03/21 hydroxyzine HCl 10 mg tablet 10 mg PO BID PRN #30 tab 07/31/21 cyclobenzaprine 10 mg tablet 10 mg PO Q8H PRN #21 tab 10/12/21 ibuprofen 800 mg tablet 800 mg PO Q8H PRN #21 tab 10/12/21 Allergies Allergy/AdvReac Type Severity Reaction Status Date / Time banana Allergy Severe Anaphylaxis Verified 08/28/21 15:54 Latex, Natural Rubber Allergy Severe Anaphylaxis Verified 08/28/21 15:54 aspirin AdvReac Mild rash Verified 08/28/21 15:54 Penicillins AdvReac Mild rash Verified 08/28/21 15:54 Sulfa (Sulfonamide AdvReac Mild rash Verified 08/28/21 15:54 Antibiotics) contrast Allergy Severe Stroke Uncoded 08/28/21 15:54 Symptoms tropical fruits AdvReac Anaphylaxis-Includes Uncoded 08/28/21 15:54 Bananas Review of Systems <Collins Logan PA-C - Last Filed: 10/12/21 17:10> Review of Systems ROS Unobtainable: All systems reviewed & are unremarkable except as noted in HPI and below Constitutional Constitutional: Denies chills, Denies fatigue, Denies fever(s), Denies frequent falls, Denies lethargy and Denies weakness Eyes Eyes: Denies change in vision, Denies eye discharge, Denies irritation and Denies loss of vision ENT Ears, Nose, Mouth, and Throat: Denies change in voice, Denies dizziness, Denies neck pain, Denies sore throat and Denies throat swelling Cardiovascular Cardiovascular: Reports chest pain, Reports irregular heart rhythm, Reports lightheadedness, Denies palpitations, Denies dyspnea, Denies dyspnea on exertion and Denies orthopnea Respiratory Respiratory: Denies cough, Denies dyspnea, Denies dyspnea on exertion and Denies wheezing Gastrointestinal Gastrointestinal: Denies abdominal pain, Denies change in bowel habits, Denies diarrhea, Denies nausea and Denies vomiting Genitourinary Genitourinary: Denies hematuria, Denies flank pain, Denies urinary incontinence and Denies urinary urgency Musculoskeletal Musculoskeletal: Denies back pain, Reports arthralgias, Reports limited range of motion, Denies muscle weakness, Denies neck pain, Denies numbness and Denies tingling Integumentary/Breasts Skin/Breast: Denies pruritus, Denies erythema, Denies rash and Denies wounds Neurologic Neurologic: Denies behavioral changes, Denies confusion, Denies dizziness, Denies frequent falls, Denies loss of vision, Denies numbness, Denies tingling and Denies weakness Psychiatric Psychiatric: Denies anxiety, Denies behavioral changes, Denies confusion, Denies depression, Denies homicidal ideation and Denies suicidal ideation Endocrine Endocrine: Denies fatigue, Denies flushing and Denies palpitations Hematologic/Lymphatic Hematologic/Lymphatic: Denies easy bruising Allergic/Immunologic Allergic/Immunologic: Denies urticaria, Denies throat swelling and Denies wheezing Patient History <Collins Logan PA-C - Last Filed: 10/12/21 17:10> Medical History Anxiety Asthma Complex tear of medial meniscus of right knee as current injury Depression Diabetes Esophageal abnormality Functional neurological symptom disorder with weakness or paralysis Hiatal hernia History of Klinefelter syndrome History of renal stone HLD (hyperlipidemia) Left inguinal hernia Localized osteoarthritis of knees, bilateral OCD (obsessive compulsive disorder) Osteoarthritis Peripheral neuropathy PTSD (post-traumatic stress disorder) Trauma in childhood Surgical History History of surgery Hx of arthroscopy of right knee (11/04/20) Social History household members: other Smoking Status: Never smoker alcohol intake: never eating out: rarely or never Type(s) of exercise: walking Smoking Status: Never smoker alcohol intake frequency: holidays/special occasions only Substance Use Type: does not use Exam <Collins Logan PA-C - Last Filed: 10/12/21 17:10> Initial Vital Signs Initial Vital Signs: Vital Signs Temperature 98.0 F 10/12/21 15:33 Pulse Rate 90 10/12/21 15:33 Respiratory Rate 18 10/12/21 15:33 Blood Pressure 170/75 H 10/12/21 15:33 Pulse Oximetry 100 10/12/21 15:33 Const General: cooperative, healthy appearing, comfortable and well developed Nutritional Appearance: average body habitus Orientation: Orientation [facility] Head: normal to inspection, normocephalic and atraumatic Ears: external ears normal Nose: external nose normal and nares normal Face and sinus: normal facial exam Mouth: oral mucosae normal Eyes Pupils: PERRL Chest Chest: normal palpation of entire chest wall Resp Effort & Inspection: normal respiratory effort and able to speak in complete sentences Auscultation: clear to auscultation bilaterally Percussion: percussion normal Cardio Rate: regular rate Rhythm: regular rhythm Heart Sounds: S1 normal and S2 normal Back/Spine/Pelvis Cervical Spine: cervical ROM normal and cervical spinal tenderness Neuro General: patient alert, patient awake and patient oriented x3 Cranial Nerves: CN's II-XI intact bilaterally Extrem Left upper extremity: normal to inspection, full ROM and shoulder/upper arm Details: tenderness and normal ROM <Karlee Vega MD - Last Filed: 10/12/21 18:18> Initial Vital Signs Initial Vital Signs: Vital Signs Temperature 98.0 F 10/12/21 15:33 Pulse Rate 90 10/12/21 15:33 Respiratory Rate 18 10/12/21 15:33 Blood Pressure 170/75 H 10/12/21 15:33 Pulse Oximetry 100 10/12/21 15:33 Course <Collins Logan PA-C - Last Filed: 10/12/21 17:10> Orders Ordered: ED Orders 10/12/21 15:33 XR chest 1V Stat EKG-12 Lead Stat 10/12/21 15:36 Complete Blood Count AUTO DIFF Stat Comprehensive Metabolic Panel Stat Lipase Stat Magnesium Stat Troponin & CK Cardiac Panel Stat 10/12/21 15:48 XR cervical spine 2V or 3V Stat XR shoulder LT min 2V Stat Vital Signs Vital signs: Vital Signs - 8 hr 10/12/21 15:33 10/12/21 17:21 Temperature 98.0 F Pulse Rate 90 Respiratory Rate 18 Blood Pressure 170/75 H 131/82 Pulse Oximetry 100 <Karlee Vega MD - Last Filed: 10/12/21 18:18> Orders Ordered: ED Orders 10/12/21 15:33 XR chest 1V Stat EKG-12 Lead Stat 10/12/21 15:36 Complete Blood Count AUTO DIFF Stat Comprehensive Metabolic Panel Stat Lipase Stat Magnesium Stat Troponin & CK Cardiac Panel Stat 10/12/21 15:48 XR cervical spine 2V or 3V Stat XR shoulder LT min 2V Stat Vital Signs Vital signs: Vital Signs - 8 hr 10/12/21 15:33 10/12/21 17:21 Temperature 98.0 F Pulse Rate 90 Respiratory Rate 18 Blood Pressure 170/75 H 131/82 Pulse Oximetry 100 MDM - Chest Pain <Collins Logan PA-C - Last Filed: 10/12/21 17:10> Differential Diagnosis Differential diagnosis: Likely chest pain Lab Data Result diagrams: 10/12/21 15:36 10/12/21 15:36 Labs: Lab Results 10/12/21 10/12/21 Range/Units 15:36 15:36 WBC 7.9 (4.5-11.0) X10^3/uL RBC 4.64 (4.5-5.9) X10^6/uL Hgb 13.4 L (13.5-17.5) g/dL Hct 38.4 L (41-53) % MCV 82.7 (80-100) fL MCH 28.8 (26-34) PG MCHC 34.8 (30-36) % RDW 14.5 (11.6-14.8) % Plt Count 209 (150-400) X10^3/uL Neut % (Auto) 58.8 (50-75) % Lymph % (Auto) 25.8 (25-40) % [place] % (Auto) 7.8 (3-14) % Eos % (Auto) 6.9 H (2-4) % Baso % (Auto) 0.7 (0-2) % Neut # (Auto) 4600 (5981-5936) /uL Lymph # (Auto) 2000 (4904-0986) /uL [place] # (Auto) 600 (0-900) /uL Eos # (Auto) 500 H (0-450) /uL Baso # (Auto) 100 (0-100) /uL Sodium 140 (137-145) mmol/L Potassium 4.1 (3.4-5.1) mmol/L Chloride 103 (98-107) mmol/L Carbon Dioxide 30 (22-32) mmol/L BUN 17 (9-20) mg/dL Creatinine 0.68 (0.66-1.25) mg/dL Estimated GFR > 60.0 (>60) mL/min BUN/Creatinine Ratio 25.0 H (6-22) Glucose 177 H (70-100) mg/dL Calcium 9.7 (8.4-10.2) mg/dL Magnesium 1.8 (1.6-2.3) mg/dL Total Bilirubin 0.5 (0.2-1.3) mg/dL AST 27 (17-59) IU/L ALT 18 (<50) IU/L Alkaline Phosphatase 106 (38-126) U/L Total Creatine Kinase 66 (55-170) U/L CK-MB (CK-2) TNP CK-MB (CK-2) Rel Index TNP Troponin I < 0.012 (0.01-0.034) ng/mL Total Protein 8.5 H (6.3-8.2) g/dL Albumin 4.9 (3.5-5.0) g/dL Globulin 3.6 (1.7-4.1) g/dL Albumin/Globulin Ratio 1.4 (1.0-2.8) Lipase 211 (23-300) U/L Imaging Data Cervical XR: Radiologist's Impression: PROCEDURE:? XR CERVICAL SPINE 2V OR 3V ? INDICATIONS:? left shoulder pain ? TECHNIQUE:? 3 view(s) of the cervical spine were acquired.? ? COMPARISON:? [facility], MR, MR CERVICAL SPINE WITHOUT CONTRAST, 09/28/2018, 21:39.? [facility], CT, CT NECK SOFT TISSUE W CON, 07/13/2015, 8:34.? [facility], CR, XR CHEST 1V, 10/12/2021, 15:47.? [facility], CR, XR SHOULDER LT MIN 2V, 10/12/2021, 15:43. ? FINDINGS:? ? Bones:? No fractures or dislocations to the C7 level.? The lateral masses of C1 appear intact on the odontoid view.? No suspicious bony lesions.? ? There is [id number] disc space narrowing seen at the C5-C6 level, with at least moderate disc space narrowing at C6-C7.? Endplate irregularity and sclerosis are seen, which are worst at C6-C7.? There is overall straightening of the normal cervical lordosis. ? Soft tissues:? No prevertebral soft tissue swelling.? The visualized lung apices are unremarkable. ? ? ? IMPRESSION:? Cervical spine degenerative changes are seen, which are worst inferiorly. ? If it would be helpful for clinical management decision making, please consider a dedicated cervical spine MRI for further evaluation (assuming that there is no contraindication).? MDM Narrative Medical decision making narrative: Patient was evaluated for neck left shoulder and left-sided chest pain today in the ED patient reports pain passes the left shoulder goes down into the arm on occasion radiate into the armpit pain increases with motion of the shoulder and neck. Cardiac enzymes were negative EKG was normal vital signs remained stable throughout the entire visit. Cervical x-rays show some degeneration had 2 levels within his neck of which I believe is a likely cause of his symptoms today. My recommendation was to him was to follow-up with a personnel placement specialist for further treatment and evaluation. I recommend 1-2 days off of work for rest. <Karlee Vega MD - Last Filed: 10/12/21 18:18> Lab Data Labs: Lab Results 10/12/21 10/12/21 Range/Units 15:36 15:36 WBC 7.9 (4.5-11.0) X10^3/uL RBC 4.64 (4.5-5.9) X10^6/uL Hgb 13.4 L (13.5-17.5) g/dL Hct 38.4 L (41-53) % MCV 82.7 (80-100) fL MCH 28.8 (26-34) PG MCHC 34.8 (30-36) % RDW 14.5 (11.6-14.8) % Plt Count 209 (150-400) X10^3/uL Neut % (Auto) 58.8 (50-75) % Lymph % (Auto) 25.8 (25-40) % [place] % (Auto) 7.8 (3-14) % Eos % (Auto) 6.9 H (2-4) % Baso % (Auto) 0.7 (0-2) % Neut # (Auto) 4600 (1791-2009) /uL Lymph # (Auto) 2000 (1051-3176) /uL [place] # (Auto) 600 (0-900) /uL Eos # (Auto) 500 H (0-450) /uL Baso # (Auto) 100 (0-100) /uL Sodium 140 (137-145) mmol/L Potassium 4.1 (3.4-5.1) mmol/L Chloride 103 (98-107) mmol/L Carbon Dioxide 30 (22-32) mmol/L BUN 17 (9-20) mg/dL Creatinine 0.68 (0.66-1.25) mg/dL Estimated GFR > 60.0 (>60) mL/min BUN/Creatinine Ratio 25.0 H (6-22) Glucose 177 H (70-100) mg/dL Calcium 9.7 (8.4-10.2) mg/dL Magnesium 1.8 (1.6-2.3) mg/dL Total Bilirubin 0.5 (0.2-1.3) mg/dL AST 27 (17-59) IU/L ALT 18 (<50) IU/L Alkaline Phosphatase 106 (38-126) U/L Total Creatine Kinase 66 (55-170) U/L CK-MB (CK-2) TNP CK-MB (CK-2) Rel Index TNP Troponin I < 0.012 (0.01-0.034) ng/mL Total Protein 8.5 H (6.3-8.2) g/dL Albumin 4.9 (3.5-5.0) g/dL Globulin 3.6 (1.7-4.1) g/dL Albumin/Globulin Ratio 1.4 (1.0-2.8) Lipase 211 (23-300) U/L Discharge Plan Departure Patient Disposition: Home Clinical Impression: Cervical disc disorder Instructions: DI for Neck Pain Activity Restrictions/Additional Instructions: Patient needs 1-2 days off of work. Return to work without any restrictions Prescriptions: New cyclobenzaprine 10 mg tablet 10 mg PO Q8H PRN (Reason: muscle spasm) Qty: 21 0RF ibuprofen 800 mg tablet 800 mg PO Q8H PRN (Reason: pain) Qty: 21 0RF No Action gabapentin 100 mg capsule 500 mg PO BID 0RF Label Comments: Initiating taper per Neurology Lantus Solostar U-100 Insulin 100 unit/mL (3 mL) insulin pen 20 unit SUBCUT QAM 0RF Label Comments: took 12 untis this morning Novolin R Regular U-100 Insuln 100 unit/mL solution 10 - 15 unit SUBCUT SEEINSTR 0RF Label Comments: Takes with lunch and dinner lorazepam 1 mg tablet 1 mg PO BID PRN (Reason: anxiety) Qty: 60 0RF hydroxyzine HCl 10 mg tablet 10 mg PO BID PRN (Reason: anxiety) Qty: 30 0RF metformin 1,000 mg tablet 1,000 mg PO BID 0RF albuterol sulfate 90 mcg/actuation HFA aerosol inhaler 2 puff INHALATION Q6H PRN (Reason: Congestion) 0RF cholecalciferol (vitamin D3) 5,000 unit capsule 5,000 unit PO DAILY 0RF famotidine 40 mg Tablet 40 mg PO DAILY 0RF tamsulosin [Flomax] 0.4 mg Capsule 0.4 mg PO DAILY 0RF Referrals: Sandro Davalos MD [Primary Care Provider] - Stand Alone Forms: Work Release Note <Karlee Vega MD - Last Filed: 10/12/21 18:18> Cosign ED Attending Cosignature Attestation: I was immediately available in the department for consultation throughout this patient's visit. I agree with documentation as above. Karlee Vega MD
[2021-10-12 15:53] LABS: Alanine Aminotransferase 18 IU/L (<50); Albumin 4.9 g/dL (3.5-5.0); Albumin Globulin Ratio 1.4 (1.0-2.8); Alkaline Phosphatase 106 U/L (38-126); Aspartate Aminotransferase 27 IU/L (17-59); Bilirubin Total 0.5 mg/dL (0.2-1.3); Blood Urea Nitrogen 17 mg/dL (9-20); Calcium 9.7 mg/dL (8.4-10.2); Carbon Dioxide 30 mmol/L (22-32); Chloride 103 mmol/L (98-107); Creatine Kinase 66 U/L (55-170); Estimated Glomerular Filt Rate > 60.0 mL/min (>60); Globulin 3.6 g/dL (1.7-4.1); Glucose 177 mg/dL (70-100); HEMOLYSIS < 15 (0-50); Lipase 211 U/L (23-300); Magnesium 1.8 mg/dL (1.6-2.3); Potassium 4.1 mmol/L (3.4-5.1); Sodium 140 mmol/L (137-145); Total Protein 8.5 g/dL (6.3-8.2)
[2021-10-12 16:04] LABS: Troponin I < 0.012 ng/mL (0.01-0.034)
[2021-10-12 17:21] VITALS: BP 131/82
== END 2021-10-12 17:21 | disposition home or self-care (01) ==
PROVIDERS: Emergency Medicine; Emergency Provider Physician Assistant; PCP Family Medicine
DX: M50.90 Cervical disc disorder, unspecified, unspecified cervical region (principal); R07.9 Chest pain, unspecified; M25.512 Pain in left shoulder
CPT/HCPCS: 36415; 71045; 72040; 73030; 80053; 82550; 83690; 83735; 84484; 85025; 93005; 99284

== ENCOUNTER → 2021-11-01 10:13 | Outpatient (ROUT) | payer SELFPAY ==
[2021-11-01 10:25] LABS: Appearance Urine UA CLEAR; Bilirubin Urine UA NEGATIVE (NEGATIVE); Color Urine UA YELLOW; Glucose Urine UA TRACE g/dL (Negative); Ketones Urine UA TRACE (NEGATIVE); Leukocyte Esterase Urine UA NEGATIVE (NEGATIVE); Nitrite Urine UA NEGATIVE (Negative); Occult Blood Urine UA NEGATIVE (Negative); Protein Urine UA TRACE (Negative); Specific Gravity Urine UA >=1.030 (1.000-1.035); Urobilinogen Urine UA 0.2 E.U./dL (0.2)
[2021-11-01 11:03] LABS: Bacteria Urine None Seen; Calcium Oxalate Crystals Urine Few; Culture Indicated Urine Cult Not Indicated; RBC Urine 0-1/HPF (0-5/HPF); WBC Urine 0-1/HPF (0-5/HPF)
== END ==
PROVIDERS: PCP Family Medicine; Visit Provider Urology
DX: R30.0 Dysuria (principal)
CPT/HCPCS: 81001

== ENCOUNTER → 2021-11-05 11:41 | Outpatient (CLI) | payer OTHER, SELFPAY ==
[2021-11-05 12:03] LABS: COVID19 -Nasal RAPID Negative (Negative)
== END ==
PROVIDERS: PCP Family Medicine; Visit Provider Nurse Practitioner Family
DX: Z20.822 Contact with and (suspected) exposure to COVID-19 (principal)
CPT/HCPCS: 87635

== ENCOUNTER → 2021-11-05 12:46 | Outpatient (CLI) | payer OTHER, SELFPAY ==
--- NOTE | 2021-11-05 12:47 | DI.RAD.S_ITS ---
PROCEDURE: XR KUB INDICATIONS: hematuria TECHNIQUE: One view of the abdomen acquired. COMPARISON: [facility], CT, CT KUB, 07/15/2020, 16:31. [facility], CT, CT KIDNEY URETER BLADDER (KUB), 06/16/2020, 9:35. [facility], CR, XR ABDOMEN 1 VIEW, 06/25/2020, 11:16. FINDINGS: Surgical changes and devices: None. Bowel: Bowel gas pattern is normal. Soft tissues: No suspicious abdominal calcifications. Visualized solid organ contours appear normal in size. Bones: No suspicious bony lesions. IMPRESSION: Unremarkable supine abdominal plain films. Dictated by: Mani Clay M.D. on 11/05/2021 at 13:37 Approved by: Mani Clay M.D. on 11/05/2021 at 13:39
== END ==
PROVIDERS: PCP Family Medicine; Referring Provider Nurse Practitioner Family; Visit Provider Nurse Practitioner Family
DX: R31.9 Hematuria, unspecified (principal); Z20.822 Contact with and (suspected) exposure to COVID-19
CPT/HCPCS: 74018; 87635